=== PATIENT | male | born 1940 ===

== ENCOUNTER 2016-10-16 11:31 | Inpatient (IN) | payer MEDICARE, OTHER ==
[2016-10-12 08:32] VITALS: BMI 22.1
[2016-10-16 11:57] LABS: ADD MANUAL DIFF? NO
[2016-10-16 12:07] LABS: BASO # 0.05 K/mm3 (0.0-2.0); BASO % 0.6 % (0.0-3.0); EOS # 0.1 (0.0-0.7); EOS % 1.3 % (1.5-5.0); GRAN # 4.48 (1.4-6.5); GRAN % 56.5 % (50.0-68.0); HEMATOCRIT 37.4 % (42.0-52.0); LYMPH # 2.4 (1.2-3.4); LYMPH % 29.7 % (22.0-35.0); MEAN CELL VOLUME 96.9 fl (80.0-105.0); MEAN CORPUSCULAR HEMOGLOBIN 31.1 pg (25.0-35.0); MEAN CORPUSCULAR HGB CONC 32.1 g/dl (31.0-37.0); MEAN PLATELET VOLUME 9.6 fl (7.0-11.0); MONO # 0.9 (0.1-0.6); MONO % 11.9 % (1.0-6.0); PLATELET COUNT 321 10^3/uL (120.0-450.0); RED CELL DISTRIBUTION WIDTH 13.7 % (11.5-14.5); WHITE BLOOD COUNT 7.9 10^3/ul (4.5-11.0)
[2016-10-16 12:17] LABS: BLOOD UREA NITROGEN 21 mg/dL (7-21); CALCIUM 9.8 mg/dL (8.4-10.5); CARBON DIOXIDE 27 mmol/L (21-33); CHLORIDE 103 mmol/L (98-107); GFR AFRICAN-AMERICAN > 60; GLUCOSE,RANDOM 95 mg/dL (70-110); SODIUM 141 mmol/L (132-148)
[2016-10-16 12:18] LABS: INR 1.06 (0.93-1.08); PARTIAL THROMBOPLASTIN TIME 26.1 Seconds (23.7-30.8)
--- NOTE | 2016-10-16 12:37 | CP.SDSHP ---
Same Day Surgery H & P - History Proposed Procedure: caroted angiogram wt stent placement. Pre-Op Diagnosis: severe caroted artery disease bilteral. - Previous Medical/Surgical History Cardiac: Hypertension, ASHD/CAD, Hx of CHF, Arrhythmia, Other (cardiomyopathy.) Pulmonary: Smoking Pain: 0. No Pain Previous Surgical History: ptca ,stent x2 - Allergies Allergies: Allergies No Known Allergies Allergy (Verified 06/12/16 10:05) - Physical Exam General Appearance: WNL. Mental Status: Alert & Oriented x3 Neuro: WNL Heart: WNL Lungs: WNL GI: WNL - {Optional Preform as Required} Other Pertinent Findings: gerd.sciatica left.recurrent syncopy. - Impression Impression: severe caroted artery disease bilateral.hx of syncope. - Date & Time Date: 10/16/16 Time: 12:36 Short Stay Discharge - Short Stay Discharge Admitting Diagnosis/Reason for Visit: I65.23/G45.1 Disposition: HOME/ ROUTINE
[2016-10-16] MEDS ORDERED: Lidocaine 2% Inj (20ml) ONE (14:29)
[2016-10-16] MEDS ORDERED: Phenylephrine 10 mg/ml Inj ONE (14:29)
[2016-10-16] MEDS ORDERED: Iodixanol 320 MG/ML 100 ML BOTTLE IV ONE ×2 (14:30→15:52)
[2016-10-16] MEDS ORDERED: Midazolam 2 MG/2 ML VIAL ONE ×2 (14:30→15:03)
[2016-10-16] MEDS ORDERED: Iodixanol 320 MG/ML 200 ML BOTTLE IV ONE (14:30)
[2016-10-16] MEDS ORDERED: DOPamine 400mg/250ml D5W 400 MG/250 ML BAG IV ONE (14:30)
[2016-10-16] MEDS ORDERED: BISACODYL 5 MG PO PRN (16:51)
[2016-10-16] MEDS ORDERED: Sodium Chloride 0.45% 1,000 ML IV SCH (17:00)
[2016-10-16] MEDS ORDERED: Bisacodyl 5mg EC Tab PO PRN (17:05)
[2016-10-16] MEDS ORDERED: NOREPINEPHRINE BIT/0.9 % NACL 4 MG/250 ML BAG IV ONE (17:19)
[2016-10-16] MEDS ORDERED: Morphine 2 mg/ml ISec IVP STA (17:24)
--- NOTE | 2016-10-16 18:11 | PCM.PROC ---
Procedures Attestation:: I certify that I have explained the specified Operation(s) or Procedure(s), risks, benefits and reasonable alternatives to the Patient and/or other person responsible. The opportunity was given to ask questions and all questions answered - Central Line Placement Right Internal Jugular Triple Lumen Catheter Aseptic technique was employed throughout the procedure: Hand Hygiene done prior to procedure, Full sterile barriers (mask, hair cover, sterile gown, sterile gloves), Chloraprep Antiseptic: 30 second prep for IJ or SC sites CVP Time Out Performed: Yes Pt. Placed on Pulse Ox Monitor: Yes Central Line Prep: Chlorhexidine-Alcohol Combination Local Anesthesia Used: Lidocaine 1% Ultrasound Used for Placement: Yes Central Line Lumen Inserted: triple Central Line Length: 20 cm Post Procedure: Sutured in Place, Good Blood Return, All Ports Aspirated, Flushed, Capped, Sterile Dressing Applied Secured by: Suture Post procedure dressing: Clear vapor permeable Post Procedure X-Ray: Yes Patient Tolerated Procedure: Well Immediate Complications: None
[2016-10-16] MEDS: NOREPINEPHRINE BIT/0.9 % NACL 4 MG/250 ML BAG IV PRN ×2 (18:27→22:18)
--- NOTE | 2016-10-16 18:35 | CP.PCM.HP ---
<AimeeShereen - Last Filed: 10/16/16 18:44> History of Present Illness - History of Present Illness History of Present Illness: History and Physical for Dr. Santa 76 M presents to ICU for observation s/p carotid enderartectomy via Dr. Cote. POD#0 Patient has a history of CAD, hypertension, hypercholesterolemia. Patient came into the ICU after episode of hypotension during the procedure. In the ICU, patient had A-line placed and a Right IJ (TLC) placed at 16. Patient not tolerating pain well. Patient was given morphine during the procedures. Patient tolerated the procedure well. Norepinephrine 4 mg / 250 cc , 4mcg/min. Blood pressure reading via A-line is above 150 systolic. Please see vitals in MAR for record of BP. (will add in addendum when posted by nursing) PMH: CAD, hypertension, hypercholesterolemia. PSHx: stent placement in [place] (2010). SHX: no history of smoking or significant alcohol use. Allergies: NKDA Present on Admission - Present on Admission Any Indicators Present on Admission: No History of DVT/PE: No History of Uncontrolled Diabetes: No Urinary Catheter: No Decubitus Ulcer Present: No Past Patient History - Past Social History Smoking Status: Never Smoked - CARDIAC Hx Pacemaker: Yes - NEUROLOGICAL Hx Paralysis: No - HEMATOLOGICAL/ONCOLOGICAL Hx Blood Transfusions: No - MUSCULOSKELETAL/RHEUMATOLOGICAL Hx Musculoskeletal Disorders: Yes (SCIATICA) - PSYCHIATRIC Hx Emotional Abuse: No Hx Physical Abuse: No Hx Substance Use: No - SURGICAL HISTORY Hx Surgeries: Yes - ANESTHESIA Hx Anesthesia Reactions: No Hx Malignant Hyperthermia: No Meds Allergies/Adverse Reactions: Allergies Allergy/AdvReac Type Severity Reaction Status Date / Time No Known Allergies Allergy Verified 10/16/16 20:29 Physical Exam - Constitutional Appears: Non-toxic, No Acute Distress - Head Exam Head Exam: NORMAL INSPECTION - Eye Exam Eye Exam: EOMI, Normal appearance - ENT Exam ENT Exam: Mucous Membranes Dry Additional comments: Patient asked for water during the procedures. - Neck Exam Neck exam: Positive for: Full Rom, Normal Inspection - Respiratory Exam Respiratory Exam: Clear to Auscultation Bilateral, NORMAL BREATHING PATTERN. absent: Accessory Muscle Use, Respiratory Distress - Cardiovascular Exam Cardiovascular Exam: Tachycardia - GI/Abdominal Exam GI & Abdominal Exam: Soft. absent: Tenderness - Extremities Exam Extremities exam: Positive for: full ROM, normal inspection. Negative for: joint swelling, pedal edema, tenderness - Neurological Exam Neurological exam: Alert, Normal Gait, Oriented x3 - Psychiatric Exam Psychiatric exam: Anxious, Normal Affect, Normal Mood - Skin Skin Exam: Dry, Intact, Normal Color, Warm Results - Vital Signs Recent Vital Signs: Last Vital Signs Temp 98.2 F 10/16/16 12:10 Pulse 88 10/16/16 16:59 Resp 18 10/16/16 12:10 BP 58/34 L 10/16/16 16:59 Pulse Ox 98 10/16/16 12:10 - Labs Result Diagrams: 10/16/16 11:55 10/16/16 11:55 Labs: Laboratory Results - last 24 hr 10/16/16 10/16/16 10/16/16 11:55 11:55 11:55 WBC 7.9 RBC 3.86 Hgb 12.0 L Hct 37.4 L MCV 96.9 MCH 31.1 MCHC 32.1 RDW 13.7 Plt Count 321 MPV 9.6 Gran % 56.5 Lymph % (Auto) 29.7 [place] % (Auto) 11.9 H Eos % (Auto) 1.3 L Baso % (Auto) 0.6 Gran # 4.48 Lymph # 2.4 [place] # 0.9 H Eos # 0.1 Baso # 0.05 PT 11.4 INR 1.06 APTT 26.1 Sodium 141 Potassium 5.0 Chloride 103 Carbon Dioxide 27 Anion Gap 16 BUN 21 Creatinine 1.2 Est GFR ( Amer) > 60 Est GFR (Non-Af Amer) 59 Random Glucose 95 Calcium 9.8 Assessment & Plan - Assessment and Plan (Free Text) Assessment: 76 M s/p carotid endarterectomy POD#0 history of CAD, hypertension, hypercholesterolemia Plan: Carotid endarterectomy POD#0 monitor femoral entrance site for hematoma, drainage, bleeding Monitor CBC Lines: a line TLC - Right IJ and 16 monitor for erythema, induration, hematoma Pain: Percocet 5/325 1 tab POQ6H PRN tylenol 650 mg POQ4H PRN Hypotensive: NS 40 cc/hr Norepi 4 mg / 250 cc , 4mcg/min Altace 5mg POQD Stent placement 2010, CAD Eliquis 2.5 mg POBID ASA 81 mg POQD Lipitor 20 mg PO DIN Dulcolax Docusate GI PPX Pepcid 20 mg POQD - Date & Time Date: 10/16/16 Time: 18:45 <Wilfredo Santa Floyd - Last Filed: 10/17/16 17:54> Results - Vital Signs Recent Vital Signs: Last Vital Signs Temp 98.1 F 10/16/16 22:35 Pulse 77 10/17/16 14:20 Resp 33 H 10/17/16 14:20 BP 104/46 L 10/17/16 14:00 Pulse Ox 98 10/17/16 14:20 - Labs Result Diagrams: 10/17/16 06:30 10/17/16 09:30 Labs: Laboratory Results - last 24 hr 10/16/16 10/16/16 10/16/16 20:40 20:40 23:50 WBC 10.9 D 10.2 RBC 3.38 L 3.59 Hgb 10.5 L 11.2 L Hct 32.4 L 35.0 L MCV 95.9 97.5 MCH 31.1 31.2 MCHC 32.4 32.0 RDW 13.5 13.6 Plt Count 327 296 MPV 9.7 9.6 Gran % 69.3 H Lymph % (Auto) 20.8 L [place] % (Auto) 8.9 H Eos % (Auto) 0.5 L Baso % (Auto) 0.5 Gran # 7.52 H Lymph # 2.3 [place] # 1.0 H Eos # 0.1 Baso # 0.05 Sodium 139 Potassium 4.9 Chloride 107 Carbon Dioxide 23 Anion Gap 14 BUN 20 Creatinine 1.2 Est GFR ( Amer) > 60 Est GFR (Non-Af Amer) 59 Random Glucose 127 H Calcium 8.6 Total Bilirubin 0.4 AST 27 ALT 31 Alkaline Phosphatase 66 Total Protein 6.0 Albumin 3.4 Globulin 2.6 Albumin/Globulin Ratio 1.3 10/17/16 10/17/16 06:30 09:30 WBC 8.5 RBC 3.46 L Hgb 10.6 L Hct 33.3 L MCV 96.2 MCH 30.6 MCHC 31.8 RDW 13.6 Plt Count 325 MPV 10.4 Gran % 59.2 Lymph % (Auto) 24.8 [place] % (Auto) 13.5 H Eos % (Auto) 2.0 Baso % (Auto) 0.5 Gran # 5.06 Lymph # 2.1 [place] # 1.2 H Eos # 0.2 Baso # 0.04 Sodium 136 Potassium 4.4 Chloride 108 Carbon Dioxide 21 Anion Gap 11 BUN 18 Creatinine 1.0 Est GFR ( Amer) > 60 Est GFR (Non-Af Amer) > 60 Random Glucose 113 H Calcium 8.4 Total Bilirubin 0.5 AST 22 ALT 28 Alkaline Phosphatase 62 Total Protein 5.8 Albumin 3.2 Globulin 2.6 Albumin/Globulin Ratio 1.3 Attending/Attestation - Attestation I have personally seen and examined this patient.: Yes I have fully participated in the care of the patient.: Yes I have reviewed all pertinent clinical information: Yes Notes (Text): I have seen patient at bedside however I could not examine the patient as ICU staff was trying to put central line and A line. Briefly this is 76 year old male with history of CAD s/p stents, HTN, dyslipidemia, carotid stenosis who underwent left carotid stent placement today in IR brought to ICU for management of severe hypotension. He was started on Levophed. Dr Partida started eliquis and aspirin. Upon discharge patient will follow up with PMD. Dr Wilfredo Santa
--- NOTE | 2016-10-16 18:55 | CP.CCUPN ---
CCU Subjective - Physician Review Events Since Last Encounter (Free Text): 10/16/16 18:48 Presented to the ICU hypotensive and confused. 60/40 after carotid EA Emergently w/ Dr. casiano at bedside I placed an Arterial a-line and R IJ CVC Started on levophed after CVC confirmation. CCU Objective - Vital Signs / Intake & Output Vital Signs (Last 4 hours): Vital Signs Pulse BP 10/16/16 16:59 88 58/34 L 10/16/16 16:08 75 95/67 L - Physical Exam Head: Positive for: Atraumatic, Normocephalic Pupils: Positive for: PERRL Extroacular Muscles: Positive for: EOMI Conjunctiva: Positive for: Normal Mouth: Positive for: Moist Mucous Membranes Neck: Positive for: Normal Range of Motion Respiratory/Chest: Positive for: Clear to Auscultation, Good Air Exchange Cardiovascular: Positive for: Regular Rate and Rhythm Abdomen: Positive for: Normal Bowel Sounds Upper Extremity: Positive for: Normal Inspection Lower Extremity: Positive for: Normal Inspection Neurological: Positive for: GCS=15, CN II-XII Intact, Speech Normal - Medications Active Medications: Active Medications Generic Name Dose Route Start Last Admin Trade Name Freq PRN Reason Stop Dose Admin Acetaminophen 650 mg 10/16/16 16:50 Tylenol 325mg Tab PO Q4H PRN Pain, Mild (1-3) Apixaban 2.5 mg 10/16/16 18:00 Eliquis PO BID [place] Protocol Aspirin 81 mg 10/17/16 10:00 Ecotrin PO DAILY [place] Atorvastatin Calcium 20 mg 10/17/16 17:00 Lipitor PO DIN [place] Bisacodyl 5 mg 10/16/16 17:05 Dulcolax PO DAILY PRN Constipation Docusate Sodium 240 mg 10/16/16 22:00 Colace Liquid PO HS [place] Famotidine 20 mg 10/16/16 16:53 Pepcid PO DAILY PRN GI distress Sodium Chloride 1,000 mls @ 40 mls/hr 10/16/16 17:00 Sodium Chloride 0.45% IV .Q24H [place] NOREPINEPHRINE BIT/0.9 % NACL 4 mg in 250 mls @ 15 mls/hr 10/16/16 17:17 18:27 Levophed 4 Mg/ 250 Ml Ns Premixed IV 10 mcg/min .[id number] PRN 37.5 mls/hr TITRATE PER MD ORDER Administration Protocol 4 MCG/MIN Metoprolol Succinate 100 mg 10/17/16 10:00 Toprol Xl PO DAILY [facility] Oxycodone/Acetaminophen 1 tab 10/16/16 16:54 Percocet 5/325 Mg Tab PO 10/19/16 16:55 Q6H PRN Pain, moderate (4-7) Ramipril 5 mg 10/17/16 10:00 Altace PO DAILY [facility] - Patient Studies Lab Studies: Lab Studies 10/16/16 10/16/16 10/16/16 Range/Units 11:55 11:55 11:55 WBC 7.9 (4.5-11.0) 10^3/ul RBC 3.86 (3.5-6.1) 10^6/uL Hgb 12.0 L (14.0-18.0) g/dL Hct 37.4 L (42.0-52.0) % MCV 96.9 (80.0-105.0) fl MCH 31.1 (25.0-35.0) pg MCHC 32.1 (31.0-37.0) g/dl RDW 13.7 (11.5-14.5) % Plt Count 321 (120.0-450.0) 10^3/uL MPV 9.6 (7.0-11.0) fl Gran % 56.5 (50.0-68.0) % Lymph % (Auto) 29.7 (22.0-35.0) % [place] % (Auto) 11.9 H (1.0-6.0) % Eos % (Auto) 1.3 L (1.5-5.0) % Baso % (Auto) 0.6 (0.0-3.0) % Gran # 4.48 (1.4-6.5) Lymph # 2.4 (1.2-3.4) [place] # 0.9 H (0.1-0.6) Eos # 0.1 (0.0-0.7) Baso # 0.05 (0.0-2.0) K/mm3 PT 11.4 (9.9-11.8) Seconds INR 1.06 (0.93-1.08) APTT 26.1 (23.7-30.8) Seconds Sodium 141 (132-148) mmol/L Potassium 5.0 (3.6-5.0) mmol/L Chloride 103 (98-107) mmol/L Carbon Dioxide 27 (21-33) mmol/L Anion Gap 16 (10-20) BUN 21 (7-21) mg/dL Creatinine 1.2 (0.5-1.4) mg/dL Est GFR ( Amer) > 60 Est GFR (Non-Af Amer) 59 Random Glucose 95 (70-110) mg/dL Calcium 9.8 (8.4-10.5) mg/dL Laboratory Results - last 24 hr 10/16/16 10/16/16 10/16/16 11:55 11:55 11:55 WBC 7.9 RBC 3.86 Hgb 12.0 L Hct 37.4 L MCV 96.9 MCH 31.1 MCHC 32.1 RDW 13.7 Plt Count 321 MPV 9.6 Gran % 56.5 Lymph % (Auto) 29.7 [place] % (Auto) 11.9 H Eos % (Auto) 1.3 L Baso % (Auto) 0.6 Gran # 4.48 Lymph # 2.4 [place] # 0.9 H Eos # 0.1 Baso # 0.05 PT 11.4 INR 1.06 APTT 26.1 Sodium 141 Potassium 5.0 Chloride 103 Carbon Dioxide 27 Anion Gap 16 BUN 21 Creatinine 1.2 Est GFR ( Amer) > 60 Est GFR (Non-Af Amer) 59 Random Glucose 95 Calcium 9.8 Review of Systems - Review of Systems Systems not reviewed;Unavailable: Altered Mental Status - EENT Eyes: UNREMARKABLE Ears: UNREMARKABLE Nose/Mouth/Throat: UNREMARKABLE - Cardiovascular Cardiovascular: UNREMARKABLE - Respiratory Respiratory: UNREMARKABLE - Gastrointestinal Gastrointestinal: UNREMARKABLE - Genitourinary Genitourinary: UNREMARKABLE - Musculoskeletal Musculoskeletal: UNREMARKABLE - Integumentary Integumentary: UNREMARKABLE - Neurological Neurological: UNREMARKABLE Assessment/Plan - Assessment and Plan (Free Text) Assessment: 76 y/o M s/p Carotid L stent placement Severe hypotension noted post op unclear cause. Dr. Casiano aware of condition. Placed on Levophed to keep MAP>65 Neuro monitoring q1 hrs . Groin check L Ax A-Line placed and R IJ TLC . Keep BP 120-160. Placed on Asprin and Elequis per Dr. Partida. dvt p CC time 65 min + procedures A-line and R IJ TLC.
[2016-10-16] MEDS ORDERED: Morphine 2 mg/ml ISec IVP PRN (19:32)
[2016-10-16 20:45] LABS: ADD MANUAL DIFF? NO
[2016-10-16 20:47] LABS: BASO # 0.05 K/mm3 (0.0-2.0); BASO % 0.5 % (0.0-3.0); EOS # 0.1 (0.0-0.7); EOS % 0.5 % (1.5-5.0); GRAN # 7.52 (1.4-6.5); GRAN % 69.3 % (50.0-68.0); HEMATOCRIT 32.4 % (42.0-52.0); LYMPH # 2.3 (1.2-3.4); LYMPH % 20.8 % (22.0-35.0); MEAN CELL VOLUME 95.9 fl (80.0-105.0); MEAN CORPUSCULAR HEMOGLOBIN 31.1 pg (25.0-35.0); MEAN CORPUSCULAR HGB CONC 32.4 g/dl (31.0-37.0); MEAN PLATELET VOLUME 9.7 fl (7.0-11.0); MONO % 8.9 % (1.0-6.0); PLATELET COUNT 327 10^3/uL (120.0-450.0); RED CELL DISTRIBUTION WIDTH 13.5 % (11.5-14.5); WHITE BLOOD COUNT 10.9 10^3/ul (4.5-11.0)
[2016-10-16] MEDS ORDERED: Morphine 2 mg/ml ISec IVP SCH (21:00)
[2016-10-16 21:02] LABS: ALB/GLOB RATIO 1.3 (1.1-1.8); ALKALINE PHOSPHATASE 66 U/L (38-133); ALT/SGPT 31 U/L (7-56); AST/SGOT 27 U/L (15-59); BILIRUBIN,TOTAL 0.4 mg/dL (0.2-1.3); BLOOD UREA NITROGEN 20 mg/dL (7-21); CALCIUM 8.6 mg/dL (8.4-10.5); CARBON DIOXIDE 23 mmol/L (21-33); CHLORIDE 107 mmol/L (98-107); GFR AFRICAN-AMERICAN > 60; GLUCOSE,RANDOM 127 mg/dL (70-110); POTASSIUM 4.9 mmol/L (3.6-5.0); SODIUM 139 mmol/L (132-148)
--- NOTE | 2016-10-16 21:05 | VASCULAR ---
PROCEDURE: 1. Arch arteriogram and right carotid arteriogram. 2. Left ICA angioplasty and stent placement with filter wire protection. HISTORY: Severe proximal left ICA stenosis. TIA. Poor surgical candidate. PHYSICIAN(S): MD Sohail Butler MD. TECHNIQUE: The relative risks and indications of the procedure were explained to the patient and his family and consent obtained. The patient was on Plavix prior to procedure. The patient was placed supine on the arteriogram table and the right groin prepped and draped in usual sterile fashion. Conscious sedation monitoring were provided throughout the procedure by a nurse. Via a right common femoral artery approach, a 5 [place] sheath was placed. Through the sheath and over a guidewire 5 [place] flush catheter was placed in the ascending aorta and an AMERICAN DSA arch arteriogram performed. The catheter was exchanged for a 5 [place] Bernardo A1 catheter placed in the mid right common carotid artery. A DSA right carotid arteriogram consisting of 2 views of the bifurcation and two intracranial views were performed. Next the catheter was placed in the mid left common carotid artery and a DSA left carotid arteriogram consisted of 2 views the bifurcation and two intracranial views performed. An angled Glidewire and Bernardo A1 catheter were advanced into the left external carotid artery. A 6 [place] 90 cm Raabe sheath was placed in the mid to distal left common carotid artery. Heparin 6000 units IV and nitroglycerin into 250 mcg aliquots were given. The stenosis in the proximal left ICA was crossed with a large Peralta filter wire. The filter was successfully deployed in a straight segment of the right ICA at the level of C1. Good apposition was noted. The ICA stenosis was predilated with a 4 mm x 4 cm angioplasty balloon. Next a tapered 10-8 x 4 cm EV 3 nitinol stent was deployed from the terminal left common carotid artery in to the proximal internal carotid artery. After deployment the stenosis was dilated with a 6 mm x 3 cm balloon. Completion arteriograms were obtained. The filter wire was retrieved. The sheath was removed and hemostasis obtained with a Perclose device. The patient tolerated the procedure well without an obvious neurologic deficit. FINDINGS: There is a short stent graft in the proximal descending thoracic aorta just beyond the subclavian artery. Three great vessels are patent with calcification. An AICD is present. There is a mild stenosis of the proximal right internal carotid artery. A 8 mm ulceration is noted in the proximal right internal carotid artery. The right external carotid artery is widely patent. The right internal carotid artery is patent. The right M1 and A1 segments are patent. There is cross-filling of the left YASMINE and MCA circulation on the right carotid injection. There is a critical 90 percent smooth stenosis of the left internal carotid artery origin. The left external carotid artery is widely patent. The remainder the left internal carotid artery is patent and normal. Underfilling of the left YASMINE is noted. The left MCA is patent. There is a large left P com artery. IMPRESSION: 1. 90 percent smooth stenosis of the left internal carotid artery origin 2. Successful angioplasty and stent placement in the proximal left internal carotid artery with filter wire protection as described above 3. Mild right ICA stenosis. There is and 8 mm ulceration of the proximal right internal carotid artery.
[2016-10-16] MEDS ORDERED: Enoxaparin 80 mg Syringe SC STA (21:06)
[2016-10-16] MEDS ORDERED: Enoxaparin 80 mg Syringe SC SCH (21:15)
[2016-10-16] MEDS: Oxycodone/Acetaminophen 5/325 mg Tab PO PRN (22:00)
[2016-10-16] MEDS ORDERED: DOCUSATE CALCIUM 240 MG PO SCH (22:00)
[2016-10-17 00:09] LABS: MEAN CELL VOLUME 97.5 fl (80.0-105.0); MEAN CORPUSCULAR HEMOGLOBIN 31.2 pg (25.0-35.0); MEAN PLATELET VOLUME 9.6 fl (7.0-11.0); RED CELL DISTRIBUTION WIDTH 13.6 % (11.5-14.5); WHITE BLOOD COUNT 10.2 10^3/ul (4.5-11.0)
--- NOTE | 2016-10-17 00:59 | CT ---
EXAM: CT Abdomen and Pelvis Without Intravenous Contrast CLINICAL HISTORY: 76 years old, male; Pain; Abdominal pain; Acute; Chest pain; Type not specified; Additional info: Abd distension TECHNIQUE: Axial computed tomography images of the abdomen and pelvis without intravenous contrast. All CT scans at this facility use one or more dose reduction techniques, viz.: automated exposure control; ma/kV adjustment per patient size (including targeted exams where dose is matched to indication; i.e. head); or iterative reconstruction technique. Coronal and sagittal reformatted images were created and reviewed. COMPARISON: No relevant prior studies available. FINDINGS: ABDOMEN: Liver: No acute findings Gallbladder and bile ducts: The gallbladder is surgically absent. No intra-extrahepatic biliary ductal dilation. Pancreas: Limited evaluation secondary to the lack of intravenous contrast. Spleen: No acute findings. Adrenals: No acute findings. Kidneys and ureters: No obstructing stones. No hydronephrosis. Multiple rounded subcentimeter areas of decreased attenuation are identified bilaterally, statistically representing cysts. PELVIS: Bladder: Decompressed with a Meng catheter, limiting its evaluation. Reproductive: No acute findings. Appendix: The appendix is of normal-caliber (series 2, image 201). ABDOMEN and PELVIS: Stomach and bowel: No acute findings. Colonic diverticulosis, without inflammation. Peritoneum: As above. Lymph nodes: Limited evaluation without intravenous contrast. Vasculature: No aortic aneurysm. Calcified atherosclerotic disease. Bones: No acute fracture. IMPRESSION: No acute intra-abdominal pathology. Multiple nonacute findings, as detailed above. EXAM: CT Chest Without Intravenous Contrast CLINICAL HISTORY: 76 years old, male; Pain; Abdominal pain; Acute; Chest pain; Type not specified; Additional info: Abd distension TECHNIQUE: Axial computed tomography images of the chest without intravenous contrast. All CT scans at this facility use one or more dose reduction techniques, viz.: automated exposure control; ma/kV adjustment per patient size (including targeted exams where dose is matched to indication; i.e. head); or iterative reconstruction technique. Coronal and sagittal reformatted images were created and reviewed. COMPARISON: DX - CHEST PORTABLE 10/16/2016 6:22:17 PM FINDINGS: Lungs: No mass. No consolidation. Bibasilar atelectasis. Pleural spaces: No significant effusion. No pneumothorax. Heart: The heart is enlarged, without significant pericardial effusion. Vasculature: A stent graft is detected within the distal margin of the aortic arch, and the proximal descending thoracic aorta. Aneurysmal outpouching is detected at the level of the distal aortic arch (series 2, image 52) measuring 2.4 x 2.2 cm. This focus demonstrates incomplete calcification. Lymph nodes: No pathologically enlarged lymph nodes. Bones: No acute fracture. IMPRESSION: Findings along the left lateral margin of the aortic stent graft consistent with a focal aneurysm, with measurements as detailed above. Comparison with prior imaging is recommended, if available.
[2016-10-17] MEDS ORDERED: Enoxaparin 80 mg Syringe SC ONE (01:05)
[2016-10-17 07:03] LABS: ADD MANUAL DIFF? NO
[2016-10-17 07:16] LABS: BASO # 0.04 K/mm3 (0.0-2.0); BASO % 0.5 % (0.0-3.0); EOS # 0.2 (0.0-0.7); GRAN # 5.06 (1.4-6.5); GRAN % 59.2 % (50.0-68.0); HEMATOCRIT 33.3 % (42.0-52.0); LYMPH # 2.1 (1.2-3.4); LYMPH % 24.8 % (22.0-35.0); MEAN CELL VOLUME 96.2 fl (80.0-105.0); MEAN CORPUSCULAR HEMOGLOBIN 30.6 pg (25.0-35.0); MEAN CORPUSCULAR HGB CONC 31.8 g/dl (31.0-37.0); MEAN PLATELET VOLUME 10.4 fl (7.0-11.0); MONO # 1.2 (0.1-0.6); MONO % 13.5 % (1.0-6.0); PLATELET COUNT 325 10^3/uL (120.0-450.0); RED CELL DISTRIBUTION WIDTH 13.6 % (11.5-14.5); WHITE BLOOD COUNT 8.5 10^3/ul (4.5-11.0)
[2016-10-17] MEDS: Oxycodone/Acetaminophen 5/325 mg Tab PO PRN ×2 (07:44→15:28)
--- NOTE | 2016-10-17 09:00 | RAD ---
HISTORY: central line COMPARISON: No prior. FINDINGS: LUNGS: Right hemidiaphragmatic elevation of unknown chronicity is noted. No consolidations seen. PLEURA: No significant pleural effusion identified, no pneumothorax apparent. CARDIOVASCULAR: Heart is mildly enlarged a aortic knob stent graft is in place. There is soft tissue density lateral to it of unknown chronicity. Please note the subsequent CT chest abdomen and pelvic exam/report. Comparison with prior outside studies is needed to assess for interval change here Central pulmonary vascular congestion is suspect left slightly greater than right. A dual lead AICD pacemaker device is in place OSSEOUS STRUCTURES: No significant abnormalities. VISUALIZED UPPER ABDOMEN: Normal. OTHER FINDINGS: A right internal jugular central line is inserted its tip is probably at the superior vena cava -right atrial junction also is in close proximity with the pacemakers dual leads no pneumothorax seen IMPRESSION: Right internal jugular vein approach central line tip at right caval atrial junction. No pneumothorax. Asymmetrical elevated right hemidiaphragm -unknown chronicity Cardiomegaly with left aortic arch/knob stent -left lateral to the stent there is soft tissue density of unknown chronicity and significance. Please note the same-day CT chest abdomen and pelvic subsequent exam/report. Direct comparison with earlier chest x-rays or CTs chest studies is not available to assess for interval change Mild central pulmonary venous congestion suspect left greater than right. No consolidation or significant appearing pleural effusion
[2016-10-17] MEDS: NOREPINEPHRINE BIT/0.9 % NACL 4 MG/250 ML BAG IV PRN (09:41)
--- NOTE | 2016-10-17 09:49 | CARD ---
APPROVED REPORT EKG Measurement Heart [id number] <Conclusion> AV sequential or dual chamber electronic pacemaker
[2016-10-17 09:57] LABS: ALB/GLOB RATIO 1.3 (1.1-1.8); ALKALINE PHOSPHATASE 62 U/L (38-133); ALT/SGPT 28 U/L (7-56); AST/SGOT 22 U/L (15-59); BILIRUBIN,TOTAL 0.5 mg/dL (0.2-1.3); BLOOD UREA NITROGEN 18 mg/dL (7-21); CALCIUM 8.4 mg/dL (8.4-10.5); CARBON DIOXIDE 21 mmol/L (21-33); CHLORIDE 108 mmol/L (95-110); GFR AFRICAN-AMERICAN > 60; GLUCOSE,RANDOM 113 mg/dL (70-110); POTASSIUM 4.4 mmol/L (3.6-5.0); SODIUM 136 mmol/L (132-148); TOTAL PROTEIN 5.8 g/dL (5.8-8.3)
[2016-10-17] MEDS ORDERED: Non Formulary Medication (Simvastatin [Simvastatin] 40 MG) PO SCH (10:00)
[2016-10-17] MEDS ORDERED: Metoprolol Succinate 100 mg XL Tab PO SCH (10:00)
[2016-10-17] MEDS ORDERED: Sodium Chloride 0.9% 500 ML IV STA (13:01)
--- NOTE | 2016-10-17 13:12 | CP.PCM.PN ---
<Allyn Garcia - Last Filed: 10/17/16 13:31> Subjective - Date & Time of Evaluation Date of Evaluation: 10/19/15 Time of Evaluation: 07:20 - Subjective Subjective: Allyn Garcia DO, PGY-1, Internal Medicine, Hospitalist Service Patient seen and examined at bedside. Per nursing no acute events overnight. Patient was having abdominal distenstion, CT abd/pelvis showed no acute findings. Patient currently having pain. Denies headaches, dizziness, cp, sob, palpitations, abdominal pain, urinary symptoms. Objective - Vital Signs/Intake and Output Vital Signs (last 24 hours): Temp Pulse Resp BP Pulse Ox 98.1 F 67 14 108/50 L 98 10/16/16 22:35 10/17/16 13:00 10/17/16 13:00 10/17/16 13:02 10/17/16 13:00 Intake and Output: 10/17/16 10/17/16 06:59 18:59 Intake Total 980 60 Output Total 950 Balance 30 60 - Medications Medications: Current Medications Acetaminophen (Tylenol 325mg Tab) 650 mg PO Q4H PRN PRN Reason: Pain, Mild (1-3) Apixaban (Eliquis) 2.5 mg PO BID [facility] PRN Reason: Protocol Aspirin (Ecotrin) 81 mg PO DAILY [facility] Last Admin: 10/17/16 09:40 Dose: 81 mg Atorvastatin Calcium (Lipitor) 20 mg PO DIN [facility] Bisacodyl (Dulcolax) 5 mg PO DAILY PRN PRN Reason: Constipation Docusate Sodium (Colace Liquid) 240 mg PO [facility] Last Admin: 10/16/16 22:02 Dose: 240 mg Famotidine (Pepcid) 20 mg PO DAILY PRN PRN Reason: GI distress NOREPINEPHRINE BIT/0.9 % NACL (Levophed 4 Mg/ 250 Ml Ns Premixed) 4 mg in 250 mls @ 15 mls/hr IV .[id number] PRN; Protocol; 4 MCG/MIN PRN Reason: TITRATE PER MD ORDER Last Titration: 10/17/16 12:45 Dose: 5 mcg/min, 18.75 mls/hr Sodium Chloride (Sodium Chloride 0.9%) 500 mls @ 999 mls/hr IV .Q31M STA Stop: 10/17/16 13:31 Oxycodone/Acetaminophen (Percocet 5/325 Mg Tab) 1 tab PO Q6H PRN PRN Reason: Pain, moderate (4-7) Stop: 10/19/16 16:55 Last Admin: 10/17/16 07:44 Dose: 1 tab - Labs Labs: 10/17/16 06:30 10/17/16 09:30 PT 11.4 Seconds (9.9-11.8) 10/16/16 11:55 INR 1.06 (0.93-1.08) 10/16/16 11:55 APTT 26.1 Seconds (23.7-30.8) 10/16/16 11:55 - Constitutional Appears: Well, No Acute Distress - Head Exam Head Exam: ATRAUMATIC, NORMAL INSPECTION - Eye Exam Eye Exam: EOMI, Normal appearance Pupil Exam: NORMAL ACCOMODATION - ENT Exam ENT Exam: Mucous Membranes Moist - Neck Exam Neck Exam: Full ROM Additional comments: R IJ central line - Respiratory Exam Respiratory Exam: Clear to Ausculation Bilateral, NORMAL BREATHING PATTERN. absent: Rales, Rhonchi, Wheezes - Cardiovascular Exam Cardiovascular Exam: REGULAR RHYTHM, +S1, +S2 - GI/Abdominal Exam GI & Abdominal Exam: Soft. absent: Distended, Guarding, Rigid, Tenderness - Extremities Exam Additional comments: Groin dressing with bloody drainage +pedal pulses palpable Arterial A-line place - Back Exam Back Exam: NORMAL INSPECTION - Neurological Exam Neurological Exam: Alert, Awake, Oriented x3 - Psychiatric Exam Psychiatric exam: Normal Affect, Normal Mood - Skin Skin Exam: Normal Color, Warm Assessment and Plan - Assessment and Plan (Free Text) Assessment: 76 M with pmhx of CAD, hypertension, hypercholesterolemia, carotid stenosis s/p L ICA stent POD#1 presented post op with hypotension and AMS Plan: 1. Carotid Stenosis s/p L ICA stent placement POD#1 -Stable, afebrile -Monitor groin access site for bleeding -Monitor CBC -IVF hydration -Pain control prn: Percocet -Continue Dulcolax and Colace for constipation -F/U carotid artery US 2. Hypotension -Patient with Right IJ central line, Arterial A line -Started on levophed yesterday, currently at running at 6 mcg -Continue to monitor BPs -Will attempt to wean off pressor as tolerated 3. Hx of CAD, s/p stent placement in 2010 -Continue ASA, Lipitor 4. Abdominal Distention -CT abd/pelvis: no acute findings -Continue to monitor 5. GI ppx -Pepcid 20mg daily <Wilfredo Santa - Last Filed: 10/19/16 15:15> Objective - Vital Signs/Intake and Output Vital Signs (last 24 hours): Temp Pulse Resp BP Pulse Ox 98 F 97 H 16 129/85 96 10/19/16 12:00 10/19/16 12:00 10/19/16 12:00 10/19/16 12:00 10/19/16 06:00 Intake and Output: 10/19/16 10/19/16 06:59 18:59 Intake Total 250 Output Total 1000 Balance -750 - Medications Medications: Current Medications Acetaminophen (Tylenol 325mg Tab) 650 mg PO Q4H PRN PRN Reason: Pain, Mild (1-3) Last Admin: 10/19/16 09:25 Dose: 650 mg Apixaban (Eliquis) 2.5 mg PO BID [facility] PRN Reason: Protocol Aspirin (Ecotrin) 81 mg PO DAILY [facility] Last Admin: 10/19/16 10:06 Dose: 81 mg Atorvastatin Calcium (Lipitor) 20 mg PO DIN [facility] Last Admin: 10/18/16 17:13 Dose: 20 mg Bisacodyl (Dulcolax) 5 mg PO DAILY PRN PRN Reason: Constipation Last Admin: 10/18/16 18:46 Dose: 5 mg Docusate Sodium (Colace Liquid) 240 mg PO HS [facility] Last Admin: 10/18/16 22:42 Dose: 240 mg Enoxaparin Sodium (Lovenox) 70 mg SC Q12H [facility] PRN Reason: Protocol Last Admin: 10/19/16 05:56 Dose: 70 mg Famotidine (Pepcid) 20 mg PO DAILY PRN PRN Reason: GI distress Oxycodone/Acetaminophen (Percocet 5/325 Mg Tab) 1 tab PO Q6H PRN PRN Reason: Pain, moderate (4-7) Stop: 10/19/16 16:55 Last Admin: 10/18/16 08:25 Dose: 1 tab - Labs Labs: 10/19/16 04:30 10/19/16 04:30 PT 11.4 Seconds (9.9-11.8) 10/16/16 11:55 INR 1.06 (0.93-1.08) 10/16/16 11:55 APTT 26.1 Seconds (23.7-30.8) 10/16/16 11:55 Attending/Attestation - Attestation I have personally seen and examined this patient.: Yes I have fully participated in the care of the patient.: Yes I have reviewed all pertinent clinical information, including history, physical exam and plan: Yes Notes (Text): I have seen and examined the patient at bedside. Briefly this is 76 year old male with history of CAD s/p stents, HTN, dyslipidemia, carotid stenosis, CHF ( EF20%), s/p AICD who underwent left carotid stent placement yesterday in IR brought to ICU for management of severe hypotension. He remains on pressors although he is awake and alert. Patients and son is at the bedside. Eliquis on hold. Start lovenox. Upon discharge patient will follow up with Dr Fredi Cote. Dr Wilfredo Santa
--- NOTE | 2016-10-17 16:37 | CP.PCM.PN ---
<LV SALAZAR - Last Filed: 10/17/16 16:55> Subjective - Date & Time of Evaluation Date of Evaluation: 10/17/16 Time of Evaluation: 07:30 - Subjective Subjective: Patient seen and examined at bedside. Nurse reports that overnight, patient complained of abdominal pain and distension, with the urge to urinate, but inability to pass urine, subsequently placed ngo and put out 650mL. Also reports decreasing need for levophed overnight. Patient has no particular complaints, denies CP, SOB, abdominal pain, n/v/d, PEREZ, dizziness. Objective - Vital Signs/Intake and Output Vital Signs (last 24 hours): Temp Pulse Resp BP Pulse Ox 98.1 F 77 33 H 104/46 L 98 10/16/16 22:35 10/17/16 14:20 10/17/16 14:20 10/17/16 14:00 10/17/16 14:20 Intake and Output: 10/17/16 10/17/16 06:59 18:59 Intake Total 980 60 Output Total 950 Balance 30 60 - Medications Medications: Current Medications Acetaminophen (Tylenol 325mg Tab) 650 mg PO Q4H PRN PRN Reason: Pain, Mild (1-3) Apixaban (Eliquis) 2.5 mg PO BID [facility] PRN Reason: Protocol Aspirin (Ecotrin) 81 mg PO DAILY [facility] Last Admin: 10/17/16 09:40 Dose: 81 mg Atorvastatin Calcium (Lipitor) 20 mg PO DIN [facility] Bisacodyl (Dulcolax) 5 mg PO DAILY PRN PRN Reason: Constipation Docusate Sodium (Colace Liquid) 240 mg PO HS [facility] Last Admin: 10/16/16 22:02 Dose: 240 mg Enoxaparin Sodium (Lovenox) 70 mg SC Q12H [facility] PRN Reason: Protocol Famotidine (Pepcid) 20 mg PO DAILY PRN PRN Reason: GI distress NOREPINEPHRINE BIT/0.9 % NACL (Levophed 4 Mg/ 250 Ml Ns Premixed) 4 mg in 250 mls @ 15 mls/hr IV .[id number] PRN; Protocol; 4 MCG/MIN PRN Reason: TITRATE PER MD ORDER Last Titration: 10/17/16 15:42 Dose: 3 mcg/min, 11.25 mls/hr Oxycodone/Acetaminophen (Percocet 5/325 Mg Tab) 1 tab PO Q6H PRN PRN Reason: Pain, moderate (4-7) Stop: 10/19/16 16:55 Last Admin: 10/17/16 15:28 Dose: 1 tab - Labs Labs: 10/17/16 06:30 10/17/16 09:30 PT 11.4 Seconds (9.9-11.8) 10/16/16 11:55 INR 1.06 (0.93-1.08) 10/16/16 11:55 APTT 26.1 Seconds (23.7-30.8) 10/16/16 11:55 - Constitutional Appears: Non-toxic, No Acute Distress - Head Exam Head Exam: ATRAUMATIC, NORMOCEPHALIC - Eye Exam Eye Exam: EOMI, PERRL - ENT Exam ENT Exam: Mucous Membranes Moist - Neck Exam Neck Exam: absent: Lymphadenopathy, Meningismus, Thyromegaly Additional comments: Central line in place. No bleeding or drainage. - Respiratory Exam Respiratory Exam: Clear to Ausculation Bilateral. absent: Rales, Rhonchi - Cardiovascular Exam Cardiovascular Exam: RRR, +S1, +S2 - GI/Abdominal Exam GI & Abdominal Exam: Soft. absent: Firm, Guarding, Rigid, Tenderness - Extremities Exam Extremities Exam: absent: Calf Tenderness, Pedal Edema Additional comments: Axillary arterial line in place, no bleeding or drainage noted. Groin wound with some old clotted blood on dressing, no hematoma, no bruit. - Neurological Exam Neurological Exam: Alert, Awake, Oriented x3 - Psychiatric Exam Psychiatric exam: Normal Affect, Normal Mood - Skin Skin Exam: Dry, Intact Assessment and Plan - Assessment and Plan (Free Text) Assessment: 76 yo M admitted to the ICU s/p carotid stent placement, severely hypotensive of unclear etiology, for neuro monitoring and hypotension requiring vasopressor support. Plan: Neuro: - AAOx3, neurologically stable overnight - Continue to monitor neuro status CV: - Hypotensive at presentation, 60's/40's, requiring levophed. Down to 6 on levophed this AM, will continue to titrate down and monitor organ function, including urine output. Patient reportedly normally has borderline hypotension at 90's/50's - Left axillary a-line in place for frequent BP monitoring - Right IJ triple lumen central line in place - CT abd/pel completed last night, no retroperitoneal hemorrhage - Continue groin checks - Cardio (Dr. Cote) on consult, all recs appreciated - Maintain MAP>65 Pulm: - Lungs CTA b/l - Maintain O2 sat >90% Renal: - Monitor I's & O's - Maintain euvolemia - Monitor and replete lytes as needed GI: - Tolerating PO - Pepcid for Ppx Endo: - Maintain euglycemia Hem/Onc: - H/H stable, no active bleed noted - On Lovenox per Dr. Cote - Continue to monitor ID: - Afebrile, no leukocytosis - Continue to monitor Ppx: Pepcid for GI, Lovenox covers for DVT Patient seen, examined, and discussed with attending. <Kiet DANIEL,Jeancarlos H - Last Filed: 10/18/16 12:33> Objective - Vital Signs/Intake and Output Vital Signs (last 24 hours): Temp Pulse Resp BP Pulse Ox 98.1 F 87 23 95/57 L 96 10/18/16 07:27 10/18/16 11:11 10/18/16 10:40 10/18/16 11:11 10/18/16 10:40 Intake and Output: 10/18/16 10/18/16 06:59 18:59 Intake Total 140 Output Total 1100 Balance -960 - Medications Medications: Current Medications Acetaminophen (Tylenol 325mg Tab) 650 mg PO Q4H PRN PRN Reason: Pain, Mild (1-3) Apixaban (Eliquis) 2.5 mg PO BID [facility] PRN Reason: Protocol Aspirin (Ecotrin) 81 mg PO DAILY [facility] Last Admin: 10/18/16 10:41 Dose: 81 mg Atorvastatin Calcium (Lipitor) 20 mg PO DIN [facility] Last Admin: 10/17/16 17:18 Dose: 20 mg Bisacodyl (Dulcolax) 5 mg PO DAILY PRN PRN Reason: Constipation Docusate Sodium (Colace Liquid) 240 mg PO HS [facility] Last Admin: 10/17/16 22:00 Dose: 240 mg Enoxaparin Sodium (Lovenox) 70 mg SC Q12H [facility] PRN Reason: Protocol Last Admin: 10/18/16 04:55 Dose: 70 mg Famotidine (Pepcid) 20 mg PO DAILY PRN PRN Reason: GI distress NOREPINEPHRINE BIT/0.9 % NACL (Levophed 4 Mg/ 250 Ml Ns Premixed) 4 mg in 250 mls @ 15 mls/hr IV .[id number] PRN; Protocol; 4 MCG/MIN PRN Reason: TITRATE PER MD ORDER Last Titration: 10/17/16 18:31 Dose: 0 mcg/min, 0 mls/hr Oxycodone/Acetaminophen (Percocet 5/325 Mg Tab) 1 tab PO Q6H PRN PRN Reason: Pain, moderate (4-7) Stop: 10/19/16 16:55 Last Admin: 10/18/16 08:25 Dose: 1 tab - Labs Labs: 10/18/16 06:20 10/18/16 06:20 PT 11.4 Seconds (9.9-11.8) 10/16/16 11:55 INR 1.06 (0.93-1.08) 10/16/16 11:55 APTT 26.1 Seconds (23.7-30.8) 10/16/16 11:55 Attending/Attestation - Attestation I have personally seen and examined this patient.: Yes I have fully participated in the care of the patient.: Yes I have reviewed all pertinent clinical information, including history, physical exam and plan: Yes Notes (Text): 10/18/16 12:31 76 y/o M s/p Carotid stent placement Post of hypotension resolved and off vasopressors. [id number]. Cardiology and IR aware of the status. Pt is not having any further complaints. No headache or neuro disturbances. PT/OT TLC and A-Line removal. elequis or lovex and asprin to be continued. cc time 4 5min
[2016-10-17] MEDS: Enoxaparin 80 mg Syringe SC SCH (17:18)
--- NOTE | 2016-10-17 18:58 | US ---
PROCEDURE: Left carotid duplex arterial ultrasound HISTORY: Carotid stenosis TIA. Recent left ICA stent. Baseline study. PHYSICIAN(S): Sohail Partida MD. TECHNIQUE: Duplex sonography and color-flow Doppler were used to evaluate the left carotid bifurcation. FINDINGS: There is a self expanding stent well positioned at the origin of the left internal carotid artery. No evidence of thrombus or dissection is appreciated A portion of the stent is obscured by shadowing plaque. The stent is patent with normal velocities present. The peak systolic velocity in the stent is evident 88 cm/second. The proximal left external carotid artery is patent. There is antegrade flow in the left vertebral artery. IMPRESSION: 1. Widely patent proximal left ICA stent.
[2016-10-18] MEDS: Oxycodone/Acetaminophen 5/325 mg Tab PO PRN ×2 (00:28→08:25)
[2016-10-18] MEDS: Enoxaparin 80 mg Syringe SC SCH ×2 (04:55→17:13)
[2016-10-18 06:26] LABS: ADD MANUAL DIFF? NO
[2016-10-18 06:32] LABS: BASO # 0.04 K/mm3 (0.0-2.0); BASO % 0.8 % (0.0-3.0); EOS # 0.2 (0.0-0.7); EOS % 3.7 % (1.5-5.0); GRAN # 2.41 (1.4-6.5); GRAN % 47.3 % (50.0-68.0); LYMPH # 1.8 (1.2-3.4); LYMPH % 35.6 % (22.0-35.0); MEAN CELL VOLUME 95.5 fl (80.0-105.0); MEAN CORPUSCULAR HEMOGLOBIN 31.2 pg (25.0-35.0); MEAN CORPUSCULAR HGB CONC 32.7 g/dl (31.0-37.0); MEAN PLATELET VOLUME 9.5 fl (7.0-11.0); MONO # 0.6 (0.1-0.6); MONO % 12.6 % (1.0-6.0); PLATELET COUNT 223 10^3/uL (120.0-450.0); RED CELL DISTRIBUTION WIDTH 13.7 % (11.5-14.5); WHITE BLOOD COUNT 5.1 10^3/ul (4.5-11.0)
[2016-10-18 07:06] LABS: ALB/GLOB RATIO 1.2 (1.1-1.8); ALKALINE PHOSPHATASE 61 U/L (38-133); ALT/SGPT 29 U/L (7-56); AST/SGOT 30 U/L (15-59); BILIRUBIN,TOTAL 0.3 mg/dL (0.2-1.3); BLOOD UREA NITROGEN 17 mg/dL (7-21); CALCIUM 8.6 mg/dL (8.4-10.5); CARBON DIOXIDE 23 mmol/L (21-33); CHLORIDE 107 mmol/L (95-110); GFR AFRICAN-AMERICAN > 60; GLUCOSE,RANDOM 83 mg/dL (70-110); POTASSIUM 4.1 mmol/L (3.6-5.0); SODIUM 138 mmol/L (132-148); TOTAL PROTEIN 5.7 g/dL (5.8-8.3)
--- NOTE | 2016-10-18 13:26 | CP.PCM.PN ---
<Adalgisa Aguayo - Last Filed: 10/18/16 13:23> Subjective - Date & Time of Evaluation Date of Evaluation: 10/18/16 Time of Evaluation: 08:00 - Subjective Subjective: ICU Progress Note Patient seen and examined at bedside. Pt has no acute complaints at this time. Pt was weaned off pressors overnight at approx 1am and has been remaining HD stable consistent with pt's baseline. Pt has been voiding freely. No acute or adverse events overnight as per nursing staff. Pt denied fever, headache, dizziness, chills, sob, chest pains, abdominal pains, n/v/d/c or urinary symptoms. Objective - Vital Signs/Intake and Output Vital Signs (last 24 hours): Temp Pulse Resp BP Pulse Ox 98.1 F 87 23 95/57 L 96 10/18/16 07:27 10/18/16 11:11 10/18/16 10:40 10/18/16 11:11 10/18/16 10:40 Intake and Output: 10/18/16 10/18/16 06:59 18:59 Intake Total 140 Output Total 1100 Balance -960 - Medications Medications: Current Medications Acetaminophen (Tylenol 325mg Tab) 650 mg PO Q4H PRN PRN Reason: Pain, Mild (1-3) Apixaban (Eliquis) 2.5 mg PO BID [facility] PRN Reason: Protocol Aspirin (Ecotrin) 81 mg PO DAILY [facility] Last Admin: 10/18/16 10:41 Dose: 81 mg Atorvastatin Calcium (Lipitor) 20 mg PO DIN [facility] Last Admin: 10/17/16 17:18 Dose: 20 mg Bisacodyl (Dulcolax) 5 mg PO DAILY PRN PRN Reason: Constipation Docusate Sodium (Colace Liquid) 240 mg PO HS [facility] Last Admin: 10/17/16 22:00 Dose: 240 mg Enoxaparin Sodium (Lovenox) 70 mg SC Q12H [facility] PRN Reason: Protocol Last Admin: 10/18/16 04:55 Dose: 70 mg Famotidine (Pepcid) 20 mg PO DAILY PRN PRN Reason: GI distress NOREPINEPHRINE BIT/0.9 % NACL (Levophed 4 Mg/ 250 Ml Ns Premixed) 4 mg in 250 mls @ 15 mls/hr IV .[id number] PRN; Protocol; 4 MCG/MIN PRN Reason: TITRATE PER MD ORDER Last Titration: 10/17/16 18:31 Dose: 0 mcg/min, 0 mls/hr Oxycodone/Acetaminophen (Percocet 5/325 Mg Tab) 1 tab PO Q6H PRN PRN Reason: Pain, moderate (4-7) Stop: 10/19/16 16:55 Last Admin: 10/18/16 08:25 Dose: 1 tab - Labs Labs: 10/18/16 06:20 10/18/16 06:20 PT 11.4 Seconds (9.9-11.8) 10/16/16 11:55 INR 1.06 (0.93-1.08) 10/16/16 11:55 APTT 26.1 Seconds (23.7-30.8) 10/16/16 11:55 - Constitutional Appears: No Acute Distress - Head Exam Head Exam: ATRAUMATIC, NORMAL INSPECTION, NORMOCEPHALIC - Eye Exam Eye Exam: EOMI, Normal appearance, PERRL Pupil Exam: NORMAL ACCOMODATION, PERRL - ENT Exam ENT Exam: Mucous Membranes Moist, Normal Exam - Neck Exam Neck Exam: Full ROM, Normal Inspection. absent: Lymphadenopathy - Respiratory Exam Respiratory Exam: Clear to Ausculation Bilateral, NORMAL BREATHING PATTERN - Cardiovascular Exam Cardiovascular Exam: REGULAR RHYTHM, +S1, +S2. absent: Murmur - GI/Abdominal Exam GI & Abdominal Exam: Soft, Normal Bowel Sounds. absent: Tenderness - Extremities Exam Extremities Exam: Full ROM, Normal Capillary Refill, Normal Inspection. absent : Joint Swelling, Pedal Edema - Neurological Exam Neurological Exam: Alert, Awake, CN II-XII Intact, Normal Gait, Oriented x3 - Psychiatric Exam Psychiatric exam: Normal Affect, Normal Mood - Skin Skin Exam: Dry, Intact, Normal Color, Warm Assessment and Plan - Assessment and Plan (Free Text) Assessment: 76 M admitted to the ICU s/p carotid stent placement for close HD/neuro monitoring as pt experienced hypotension requiring pressor support. Pt has since stabilized and has been weaned off pressors and maintaining MAP >65. Neuro: - AAOx3, neurologically stable overnight - Continue to monitor neuro status CV: - HD stable, off pressors - no signs of active bleeding - Continue groin checks - Cardio (Dr. Cote) on consult, all recs appreciated - Maintain MAP>65 Pulm: - Lungs CTA b/l - Maintain O2 sat >90% Renal: - Monitor I's & O's - Maintain euvolemia - Monitor and replete lytes as needed GI: - Tolerating PO - Pepcid for Ppx Endo: - Maintain euglycemia Hem/Onc: - H/H stable, no active bleed noted - On Lovenox per Dr. Cote - Continue to monitor ID: - Afebrile, no leukocytosis - Continue to monitor Ppx: Pepcid for GI, Lovenox covers for DVT PT/OT/OOB/ Seen reviewed and discussed with attending <Kiet DANIEL,Jeancralos H - Last Filed: 10/18/16 17:21> Objective - Vital Signs/Intake and Output Vital Signs (last 24 hours): Temp Pulse Resp BP Pulse Ox 98.4 F 93 H 18 96/52 L 98 10/18/16 16:50 10/18/16 16:50 10/18/16 16:50 10/18/16 16:50 10/18/16 16:50 Intake and Output: 10/18/16 10/18/16 06:59 18:59 Intake Total 140 Output Total 1100 Balance -960 - Medications Medications: Current Medications Acetaminophen (Tylenol 325mg Tab) 650 mg PO Q4H PRN PRN Reason: Pain, Mild (1-3) Apixaban (Eliquis) 2.5 mg PO BID [facility] PRN Reason: Protocol Aspirin (Ecotrin) 81 mg PO DAILY [facility] Last Admin: 10/18/16 10:41 Dose: 81 mg Atorvastatin Calcium (Lipitor) 20 mg PO DIN [facility] Last Admin: 10/18/16 17:13 Dose: 20 mg Bisacodyl (Dulcolax) 5 mg PO DAILY PRN PRN Reason: Constipation Docusate Sodium (Colace Liquid) 240 mg PO HS [facility] Last Admin: 10/17/16 22:00 Dose: 240 mg Enoxaparin Sodium (Lovenox) 70 mg SC Q12H [facility] PRN Reason: Protocol Last Admin: 10/18/16 17:13 Dose: 70 mg Famotidine (Pepcid) 20 mg PO DAILY PRN PRN Reason: GI distress NOREPINEPHRINE BIT/0.9 % NACL (Levophed 4 Mg/ 250 Ml Ns Premixed) 4 mg in 250 mls @ 15 mls/hr IV .[id number] PRN; Protocol; 4 MCG/MIN PRN Reason: TITRATE PER MD ORDER Last Titration: 10/17/16 18:31 Dose: 0 mcg/min, 0 mls/hr Oxycodone/Acetaminophen (Percocet 5/325 Mg Tab) 1 tab PO Q6H PRN PRN Reason: Pain, moderate (4-7) Stop: 10/19/16 16:55 Last Admin: 10/18/16 08:25 Dose: 1 tab - Labs Labs: 10/18/16 06:20 10/18/16 06:20 PT 11.4 Seconds (9.9-11.8) 10/16/16 11:55 INR 1.06 (0.93-1.08) 10/16/16 11:55 APTT 26.1 Seconds (23.7-30.8) 10/16/16 11:55 Attending/Attestation - Attestation I have personally seen and examined this patient.: Yes I have fully participated in the care of the patient.: Yes I have reviewed all pertinent clinical information, including history, physical exam and plan: Yes Notes (Text): 10/18/16 17:20 No acute events overnight TLC and A Line removed. SBP 90's No complaints or change is neuro status Plan to send to telemetry per PCP cc time 45 min
--- NOTE | 2016-10-18 15:48 | CP.PCM.PN ---
<Allyn Garcia - Last Filed: 10/18/16 15:55> Subjective - Date & Time of Evaluation Date of Evaluation: 10/18/16 Time of Evaluation: 07:55 - Subjective Subjective: Allyn Garcia DO, PGY-1, Internal Medicine, Hospitalist Service Patient seen and examined at bedside. Per nursing no acute events overnight. Patient has been off levophed since yesterday evening, BPs stable. Patient offers no complaints at this time. Tolerating diet. Denies headache, dizziness, cp, sob, abdominal pain, numbness, tingling, urinary symptoms. Objective - Vital Signs/Intake and Output Vital Signs (last 24 hours): Temp Pulse Resp BP Pulse Ox 98.1 F 79 22 91/51 L 99 10/18/16 07:27 10/18/16 15:10 10/18/16 15:10 10/18/16 14:23 10/18/16 15:10 Intake and Output: 10/18/16 10/18/16 06:59 18:59 Intake Total 140 Output Total 1100 Balance -960 - Medications Medications: Current Medications Acetaminophen (Tylenol 325mg Tab) 650 mg PO Q4H PRN PRN Reason: Pain, Mild (1-3) Apixaban (Eliquis) 2.5 mg PO BID [facility] PRN Reason: Protocol Aspirin (Ecotrin) 81 mg PO DAILY [facility] Last Admin: 10/18/16 10:41 Dose: 81 mg Atorvastatin Calcium (Lipitor) 20 mg PO DIN [facility] Last Admin: 10/17/16 17:18 Dose: 20 mg Bisacodyl (Dulcolax) 5 mg PO DAILY PRN PRN Reason: Constipation Docusate Sodium (Colace Liquid) 240 mg PO HS [facility] Last Admin: 10/17/16 22:00 Dose: 240 mg Enoxaparin Sodium (Lovenox) 70 mg SC Q12H [facility] PRN Reason: Protocol Last Admin: 10/18/16 04:55 Dose: 70 mg Famotidine (Pepcid) 20 mg PO DAILY PRN PRN Reason: GI distress NOREPINEPHRINE BIT/0.9 % NACL (Levophed 4 Mg/ 250 Ml Ns Premixed) 4 mg in 250 mls @ 15 mls/hr IV .[id number] PRN; Protocol; 4 MCG/MIN PRN Reason: TITRATE PER MD ORDER Last Titration: 10/17/16 18:31 Dose: 0 mcg/min, 0 mls/hr Oxycodone/Acetaminophen (Percocet 5/325 Mg Tab) 1 tab PO Q6H PRN PRN Reason: Pain, moderate (4-7) Stop: 10/19/16 16:55 Last Admin: 10/18/16 08:25 Dose: 1 tab - Labs Labs: 10/18/16 06:20 10/18/16 06:20 PT 11.4 Seconds (9.9-11.8) 10/16/16 11:55 INR 1.06 (0.93-1.08) 10/16/16 11:55 APTT 26.1 Seconds (23.7-30.8) 10/16/16 11:55 - Constitutional Appears: Well, No Acute Distress - Head Exam Head Exam: NORMAL INSPECTION, NORMOCEPHALIC - Eye Exam Eye Exam: EOMI, Normal appearance Pupil Exam: NORMAL ACCOMODATION - ENT Exam ENT Exam: Mucous Membranes Moist - Neck Exam Neck Exam: Full ROM Additional comments: R IJ central line - Respiratory Exam Respiratory Exam: Clear to Ausculation Bilateral, NORMAL BREATHING PATTERN. absent: Rales, Rhonchi, Wheezes - Cardiovascular Exam Cardiovascular Exam: REGULAR RHYTHM, +S1, +S2 - GI/Abdominal Exam GI & Abdominal Exam: Soft, Normal Bowel Sounds. absent: Guarding, Tenderness, Rebound - Extremities Exam Extremities Exam: Full ROM, Normal Inspection Additional comments: Groin dressing c/d/i + pedal pulses - Back Exam Back Exam: NORMAL INSPECTION - Neurological Exam Neurological Exam: Alert, Awake, Oriented x3 - Psychiatric Exam Psychiatric exam: Normal Affect, Normal Mood - Skin Skin Exam: Normal Color, Warm Assessment and Plan - Assessment and Plan (Free Text) Assessment: 76 M with pmhx of CAD, hypertension, hypercholesterolemia, carotid stenosis s/p L ICA stent POD#2 presented post op with hypotension and AMS Plan: 1. Carotid Stenosis s/p L ICA stent placement POD#1 -Stable, afebrile -AAO x3 -Monitor groin access site for bleeding -Monitor CBC -Pain control prn: Percocet -Continue Dulcolax and Colace for constipation -Carotid artery US showing widely patent proximal L ICA stent -Will downgrade to med/surg today 2. Hypotension -Levophed titrated off since yesterday -BPs stable at baseline -Continue to monitor BPs -Goal SBP > 75 -R IJ and arterial line to be removed 3. Hx of CAD, s/p stent placement in 2010 -Continue ASA, Lipitor -Will resume Eliquis 2.5 BID tomorrow 4. Abdominal Distention -CT abd/pelvis: no acute findings -Meng removed, f/u voiding trial -Continue to monitor 5. GI ppx -Pepcid 20mg daily -Will resume Eliquis 2.5 BID tomorrow <Wilfredo Santa - Last Filed: 10/19/16 15:21> Objective - Vital Signs/Intake and Output Vital Signs (last 24 hours): Temp Pulse Resp BP Pulse Ox 98 F 97 H 16 129/85 96 10/19/16 12:00 10/19/16 12:00 10/19/16 12:00 10/19/16 12:00 10/19/16 06:00 Intake and Output: 10/19/16 10/19/16 06:59 18:59 Intake Total 250 Output Total 1000 Balance -750 - Medications Medications: Current Medications Acetaminophen (Tylenol 325mg Tab) 650 mg PO Q4H PRN PRN Reason: Pain, Mild (1-3) Last Admin: 10/19/16 09:25 Dose: 650 mg Apixaban (Eliquis) 2.5 mg PO BID [facility] PRN Reason: Protocol Aspirin (Ecotrin) 81 mg PO DAILY [facility] Last Admin: 10/19/16 10:06 Dose: 81 mg Atorvastatin Calcium (Lipitor) 20 mg PO DIN [facility] Last Admin: 10/18/16 17:13 Dose: 20 mg Bisacodyl (Dulcolax) 5 mg PO DAILY PRN PRN Reason: Constipation Last Admin: 10/18/16 18:46 Dose: 5 mg Docusate Sodium (Colace Liquid) 240 mg PO HS [facility] Last Admin: 10/18/16 22:42 Dose: 240 mg Enoxaparin Sodium (Lovenox) 70 mg SC Q12H [facility] PRN Reason: Protocol Last Admin: 10/19/16 05:56 Dose: 70 mg Famotidine (Pepcid) 20 mg PO DAILY PRN PRN Reason: GI distress Oxycodone/Acetaminophen (Percocet 5/325 Mg Tab) 1 tab PO Q6H PRN PRN Reason: Pain, moderate (4-7) Stop: 10/19/16 16:55 Last Admin: 10/18/16 08:25 Dose: 1 tab - Labs Labs: 10/19/16 04:30 10/19/16 04:30 PT 11.4 Seconds (9.9-11.8) 10/16/16 11:55 INR 1.06 (0.93-1.08) 10/16/16 11:55 APTT 26.1 Seconds (23.7-30.8) 10/16/16 11:55 Attending/Attestation - Attestation I have personally seen and examined this patient.: Yes I have fully participated in the care of the patient.: Yes I have reviewed all pertinent clinical information, including history, physical exam and plan: Yes Notes (Text): I have seen and examined the patient at bedside. Briefly this is 76 year old male with history of CAD s/p stents, HTN, dyslipidemia, carotid stenosis, CHF ( EF20%), s/p AICD who underwent left carotid stent placement in IR brought to ICU for management of severe hypotension. He is of of levophed since yesterday evening. Patient is sitting on the recliner. is at the bedside. Meng was discontinued this morning. Denies any complaints. Currently on lovenox. Plan to start eliquis tomorrow. Upon discharge patient will follow up with Dr Fredi Cote. Dr Wilfredo Santa
[2016-10-19 04:55] LABS: ADD MANUAL DIFF? NO
[2016-10-19 05:19] LABS: BASO # 0.03 K/mm3 (0.0-2.0); BASO % 0.6 % (0.0-3.0); EOS # 0.2 (0.0-0.7); EOS % 3.7 % (1.5-5.0); GRAN # 2.98 (1.4-6.5); GRAN % 54.6 % (50.0-68.0); LYMPH # 1.5 (1.2-3.4); LYMPH % 27.9 % (22.0-35.0); MEAN CELL VOLUME 94.6 fl (80.0-105.0); MEAN CORPUSCULAR HEMOGLOBIN 30.3 pg (25.0-35.0); MONO # 0.7 (0.1-0.6); MONO % 13.2 % (1.0-6.0); PLATELET COUNT 243 10^3/uL (120.0-450.0); RED CELL DISTRIBUTION WIDTH 13.4 % (11.5-14.5); WHITE BLOOD COUNT 5.5 10^3/ul (4.5-11.0)
[2016-10-19] MEDS: Enoxaparin 80 mg Syringe SC SCH ×2 (05:56→17:00)
[2016-10-19 06:39] LABS: ALB/GLOB RATIO 1.3 (1.1-1.8); ALKALINE PHOSPHATASE 54 U/L (38-133); ALT/SGPT 27 U/L (7-56); AST/SGOT 24 U/L (15-59); BILIRUBIN,TOTAL 0.3 mg/dL (0.2-1.3); BLOOD UREA NITROGEN 16 mg/dL (7-21); CALCIUM 8.8 mg/dL (8.4-10.5); CARBON DIOXIDE 24 mmol/L (21-33); CHLORIDE 108 mmol/L (95-110); GFR AFRICAN-AMERICAN > 60; GLUCOSE,RANDOM 90 mg/dL (70-110); POTASSIUM 4.5 mmol/L (3.6-5.0); SODIUM 141 mmol/L (132-148); TOTAL PROTEIN 5.9 g/dL (5.8-8.3)
--- NOTE | 2016-10-19 11:18 | CP.PCM.DIS ---
Provider - Provider Date of Admission: 10/16/16 17:01 Attending physician: Wilfredo Santa MD Time Spent in preparation of Discharge (in minutes): 35 Hospital Course - Lab Results Lab Results: Most Recent Lab Values WBC 5.5 10^3/ul (4.5-11.0) 10/19/16 04:30 RBC 3.17 10^6/uL (3.5-6.1) L 10/19/16 04:30 Hgb 9.6 g/dL (14.0-18.0) L 10/19/16 04:30 Hct 30.0 % (42.0-52.0) L 10/19/16 04:30 MCV 94.6 fl (80.0-105.0) 10/19/16 04:30 MCH 30.3 pg (25.0-35.0) 10/19/16 04:30 MCHC 32.0 g/dl (31.0-37.0) 10/19/16 04:30 RDW 13.4 % (11.5-14.5) 10/19/16 04:30 Plt Count 243 10^3/uL (120.0-450.0) 10/19/16 04:30 MPV 10.0 fl (7.0-11.0) 10/19/16 04:30 Gran % 54.6 % (50.0-68.0) 10/19/16 04:30 Lymph % (Auto) 27.9 % (22.0-35.0) 10/19/16 04:30 [place] % (Auto) 13.2 % (1.0-6.0) H 10/19/16 04:30 Eos % (Auto) 3.7 % (1.5-5.0) 10/19/16 04:30 Baso % (Auto) 0.6 % (0.0-3.0) 10/19/16 04:30 Gran # 2.98 (1.4-6.5) 10/19/16 04:30 Lymph # 1.5 (1.2-3.4) 10/19/16 04:30 [place] # 0.7 (0.1-0.6) H 10/19/16 04:30 Eos # 0.2 (0.0-0.7) 10/19/16 04:30 Baso # 0.03 K/mm3 (0.0-2.0) 10/19/16 04:30 PT 11.4 Seconds (9.9-11.8) 10/16/16 11:55 INR 1.06 (0.93-1.08) 10/16/16 11:55 APTT 26.1 Seconds (23.7-30.8) 10/16/16 11:55 Sodium 141 mmol/L (132-148) 10/19/16 04:30 Potassium 4.5 mmol/L (3.6-5.0) 10/19/16 04:30 Chloride 108 mmol/L (95-110) 10/19/16 04:30 Carbon Dioxide 24 mmol/L (21-33) 10/19/16 04:30 Anion Gap 14 (10-20) 10/19/16 04:30 BUN 16 mg/dL (7-21) 10/19/16 04:30 Creatinine 1.2 mg/dL (0.5-1.4) 10/19/16 04:30 Est GFR ( Amer) > 60 10/19/16 04:30 Est GFR (Non-Af Amer) 59 10/19/16 04:30 Random Glucose 90 mg/dL (70-110) 10/19/16 04:30 Calcium 8.8 mg/dL (8.4-10.5) 10/19/16 04:30 Total Bilirubin 0.3 mg/dL (0.2-1.3) 10/19/16 04:30 AST 24 U/L (15-59) 10/19/16 04:30 ALT 27 U/L (7-56) 10/19/16 04:30 Alkaline Phosphatase 54 U/L (38-133) 10/19/16 04:30 Total Protein 5.9 g/dL (5.8-8.3) 10/19/16 04:30 Albumin 3.3 g/dL (3.0-4.8) 10/19/16 04:30 Globulin 2.5 gm/dL 10/19/16 04:30 Albumin/Globulin Ratio 1.3 (1.1-1.8) 10/19/16 04:30 Discharge Exam - Head Exam Head Exam: NORMAL INSPECTION, NORMOCEPHALIC Discharge Plan - Follow Up Plan Condition: GOOD Disposition: HOME/ ROUTINE
--- NOTE | 2016-10-19 16:43 | CP.PCM.PN ---
<Allyn Garcia - Last Filed: 10/19/16 16:47> Subjective - Date & Time of Evaluation Date of Evaluation: 10/19/16 Time of Evaluation: 07:15 - Subjective Subjective: Allyn Garcia DO, PGY-1, Internal Medicine, Hospitalist Service Patient seen and examined at bedside. Per nursing no acute events overnight. Patient is doing well, pain is controlled. Tolerating diet. Denies headaches, dizziness, cp, sob, palpitations, abdominal pain, urinary symptoms. Objective - Vital Signs/Intake and Output Vital Signs (last 24 hours): Temp Pulse Resp BP Pulse Ox 98 F 97 H 16 129/85 96 10/19/16 12:00 10/19/16 12:00 10/19/16 12:00 10/19/16 12:00 10/19/16 06:00 Intake and Output: 10/19/16 10/19/16 06:59 18:59 Intake Total 250 360 Output Total 1000 500 Balance -750 -140 - Medications Medications: Current Medications Acetaminophen (Tylenol 325mg Tab) 650 mg PO Q4H PRN PRN Reason: Pain, Mild (1-3) Last Admin: 10/19/16 09:25 Dose: 650 mg Apixaban (Eliquis) 2.5 mg PO BID [facility] PRN Reason: Protocol Aspirin (Ecotrin) 81 mg PO DAILY [facility] Last Admin: 10/19/16 10:06 Dose: 81 mg Atorvastatin Calcium (Lipitor) 20 mg PO DIN [facility] Last Admin: 10/18/16 17:13 Dose: 20 mg Bisacodyl (Dulcolax) 5 mg PO DAILY PRN PRN Reason: Constipation Last Admin: 10/18/16 18:46 Dose: 5 mg Docusate Sodium (Colace Liquid) 240 mg PO HS [facility] Last Admin: 10/18/16 22:42 Dose: 240 mg Enoxaparin Sodium (Lovenox) 70 mg SC Q12H [facility] PRN Reason: Protocol Last Admin: 10/19/16 05:56 Dose: 70 mg Famotidine (Pepcid) 20 mg PO DAILY PRN PRN Reason: GI distress Oxycodone/Acetaminophen (Percocet 5/325 Mg Tab) 1 tab PO Q6H PRN PRN Reason: Pain, moderate (4-7) Stop: 10/19/16 16:55 Last Admin: 10/18/16 08:25 Dose: 1 tab - Labs Labs: 10/19/16 04:30 10/19/16 04:30 PT 11.4 Seconds (9.9-11.8) 10/16/16 11:55 INR 1.06 (0.93-1.08) 10/16/16 11:55 APTT 26.1 Seconds (23.7-30.8) 10/16/16 11:55 - Constitutional Appears: Well, No Acute Distress - Head Exam Head Exam: ATRAUMATIC, NORMAL INSPECTION - Eye Exam Eye Exam: EOMI, Normal appearance Pupil Exam: NORMAL ACCOMODATION - ENT Exam ENT Exam: Mucous Membranes Moist - Neck Exam Neck Exam: Full ROM Additional comments: Dressing c/d/i - Respiratory Exam Respiratory Exam: Clear to Ausculation Bilateral, NORMAL BREATHING PATTERN. absent: Rales, Rhonchi, Wheezes - Cardiovascular Exam Cardiovascular Exam: REGULAR RHYTHM, +S1, +S2 - GI/Abdominal Exam GI & Abdominal Exam: Soft, Normal Bowel Sounds. absent: Guarding, Rigid, Tenderness, Rebound - Extremities Exam Extremities Exam: absent: Calf Tenderness, Pedal Edema Additional comments: Groin dressing with bloody drainage, pressure applied and redressed - Back Exam Back Exam: NORMAL INSPECTION - Neurological Exam Neurological Exam: Alert, Awake, Oriented x3 - Psychiatric Exam Psychiatric exam: Normal Affect, Normal Mood - Skin Skin Exam: Normal Color, Warm Assessment and Plan - Assessment and Plan (Free Text) Assessment: 76 M with pmhx of CAD, hypertension, hypercholesterolemia, carotid stenosis s/p L ICA stent POD#2 presented post op with hypotension and AMS Plan: 1. Carotid Stenosis s/p L ICA stent placement POD#2 -Stable, afebrile, AAO x3 -Groin dressing changed this morning, by mid afternoon, dressing had more bloody drainage -Eliqujaneth held, will be seen by Dr Cote this evening, will continue to monitor bleeding -F/U am CBC -Pain control prn: Percocet -Continue Dulcolax and Colace for constipation -Carotid artery US showing widely patent proximal L ICA stent 2. Hypotension requiring pressors -Levophed titrated off since yesterday -BPs stable at baseline -Continue to monitor BPs -Goal SBP > 75 -Continue to hold home antihypertensive medications -R IJ and arterial line removed yesterday 3. Hx of CAD, s/p stent placement in 2011 -Continue ASA, Lipitor -Recieved morning dose of eliquis, will hold eliquis at this time 4. Abdominal Distention -CT abd/pelvis: no acute findings -Meng removed yesterday, voiding freely -Continue to monitor 5. GI ppx -Pepcid 20mg daily -Eliquis on hold <Wilfredo Santa - Last Filed: 10/20/16 12:20> Objective - Vital Signs/Intake and Output Vital Signs (last 24 hours): Temp Pulse Resp BP Pulse Ox 98.6 F 107 H 20 137/81 95 10/20/16 06:00 10/20/16 10:00 10/20/16 06:00 10/20/16 06:00 10/20/16 00:01 Intake and Output: 10/20/16 10/20/16 06:59 18:59 Intake Total 360 Output Total 1725 Balance -1365 - Medications Medications: Current Medications Acetaminophen (Tylenol 325mg Tab) 650 mg PO Q4H PRN PRN Reason: Pain, Mild (1-3) Last Admin: 10/20/16 10:57 Dose: 650 mg Apixaban (Eliquis) 2.5 mg PO BID [facility] PRN Reason: Protocol Last Admin: 10/20/16 10:59 Dose: 2.5 mg Aspirin (Ecotrin) 81 mg PO DAILY [facility] Last Admin: 10/20/16 10:57 Dose: 81 mg Atorvastatin Calcium (Lipitor) 20 mg PO DIN [facility] Last Admin: 10/19/16 18:26 Dose: 20 mg Bisacodyl (Dulcolax) 5 mg PO DAILY PRN PRN Reason: Constipation Last Admin: 10/18/16 18:46 Dose: 5 mg Docusate Sodium (Colace Liquid) 240 mg PO HS [facility] Last Admin: 10/19/16 21:42 Dose: 240 mg Enoxaparin Sodium (Lovenox) 70 mg SC Q12H [facility] PRN Reason: Protocol Last Admin: 10/19/16 17:00 Dose: Not Given Famotidine (Pepcid) 20 mg PO DAILY PRN PRN Reason: GI distress - Labs Labs: 10/20/16 07:15 10/20/16 07:15 PT 11.4 Seconds (9.9-11.8) 10/16/16 11:55 INR 1.06 (0.93-1.08) 10/16/16 11:55 APTT 26.1 Seconds (23.7-30.8) 10/16/16 11:55 Attending/Attestation - Attestation I have personally seen and examined this patient.: Yes I have fully participated in the care of the patient.: Yes I have reviewed all pertinent clinical information, including history, physical exam and plan: Yes Notes (Text): I have seen and examined the patient at bedside. Briefly this is 76 year old male with history of CAD s/p stents, HTN, dyslipidemia, carotid stenosis, CHF ( EF20%), s/p AICD who underwent left carotid stent placement in IR brought to ICU for management of severe hypotension. Patient denies any complaints. He has been off of vasopressors. This morning he had slight bleeding from the right groin site. Dressing was changed and in the evening bleeding was again noted. Call placed to Dr Cote who recommended to continue to observe the patient overnight. Plan to start eliquis tomorrow if bleeding stops. Upon discharge patient will follow up with Dr Fredi Cote. Dr Wilfredo Santa
[2016-10-20 01:49] VITALS: O2SAT 95
[2016-10-20 07:40] LABS: ALB/GLOB RATIO 1.3 (1.1-1.8); ALKALINE PHOSPHATASE 63 U/L (38-133); ALT/SGPT 34 U/L (7-56); AST/SGOT 33 U/L (15-59); BILIRUBIN,TOTAL 0.4 mg/dL (0.2-1.3); BLOOD UREA NITROGEN 16 mg/dL (7-21); CALCIUM 9.1 mg/dL (8.4-10.5); CARBON DIOXIDE 26 mmol/L (21-33); CHLORIDE 106 mmol/L (98-107); GFR AFRICAN-AMERICAN > 60; GLUCOSE,RANDOM 100 mg/dL (70-110); POTASSIUM 4.5 mmol/L (3.6-5.0); SODIUM 141 mmol/L (132-148); TOTAL PROTEIN 6.7 g/dL (5.8-8.3)
[2016-10-20 07:44] LABS: BASO # 0.03 K/mm3 (0.0-2.0); BASO % 0.5 % (0.0-3.0); EOS # 0.2 (0.0-0.7); EOS % 3.3 % (1.5-5.0); GRAN # 2.91 (1.4-6.5); GRAN % 50.6 % (50.0-68.0); HEMATOCRIT 32.8 % (42.0-52.0); LYMPH # 1.8 (1.2-3.4); LYMPH % 30.8 % (22.0-35.0); MEAN CELL VOLUME 94.3 fl (80.0-105.0); MEAN CORPUSCULAR HEMOGLOBIN 30.7 pg (25.0-35.0); MEAN CORPUSCULAR HGB CONC 32.6 g/dl (31.0-37.0); MEAN PLATELET VOLUME 10.2 fl (7.0-11.0); MONO # 0.9 (0.1-0.6); MONO % 14.8 % (1.0-6.0); RED CELL DISTRIBUTION WIDTH 13.4 % (11.5-14.5); WHITE BLOOD COUNT 5.8 10^3/ul (4.5-11.0)
--- NOTE | 2016-10-20 12:28 | CP.PCM.DIS ---
Provider - Provider Date of Admission: 10/16/16 17:01 Attending physician: Wilfredo Snata MD Primary care physician: Dr Fredi Cote Consults: Dr Sohail Partdia IR Time Spent in preparation of Discharge (in minutes): 35 Hospital Course - Lab Results Lab Results: Most Recent Lab Values WBC 5.8 10^3/ul (4.5-11.0) 10/20/16 07:15 RBC 3.48 10^6/uL (3.5-6.1) L 10/20/16 07:15 Hgb 10.7 g/dL (14.0-18.0) L 10/20/16 07:15 Hct 32.8 % (42.0-52.0) L 10/20/16 07:15 MCV 94.3 fl (80.0-105.0) 10/20/16 07:15 MCH 30.7 pg (25.0-35.0) 10/20/16 07:15 MCHC 32.6 g/dl (31.0-37.0) 10/20/16 07:15 RDW 13.4 % (11.5-14.5) 10/20/16 07:15 Plt Count 266 10^3/uL (120.0-450.0) 10/20/16 07:15 MPV 10.2 fl (7.0-11.0) 10/20/16 07:15 Gran % 50.6 % (50.0-68.0) 10/20/16 07:15 Lymph % (Auto) 30.8 % (22.0-35.0) 10/20/16 07:15 [place] % (Auto) 14.8 % (1.0-6.0) H 10/20/16 07:15 Eos % (Auto) 3.3 % (1.5-5.0) 10/20/16 07:15 Baso % (Auto) 0.5 % (0.0-3.0) 10/20/16 07:15 Gran # 2.91 (1.4-6.5) 10/20/16 07:15 Lymph # 1.8 (1.2-3.4) 10/20/16 07:15 [place] # 0.9 (0.1-0.6) H 10/20/16 07:15 Eos # 0.2 (0.0-0.7) 10/20/16 07:15 Baso # 0.03 K/mm3 (0.0-2.0) 10/20/16 07:15 PT 11.4 Seconds (9.9-11.8) 10/16/16 11:55 INR 1.06 (0.93-1.08) 10/16/16 11:55 APTT 26.1 Seconds (23.7-30.8) 10/16/16 11:55 Sodium 141 mmol/L (132-148) 10/20/16 07:15 Potassium 4.5 mmol/L (3.6-5.0) 10/20/16 07:15 Chloride 106 mmol/L (98-107) 10/20/16 07:15 Carbon Dioxide 26 mmol/L (21-33) 10/20/16 07:15 Anion Gap 14 (10-20) 10/20/16 07:15 BUN 16 mg/dL (7-21) 10/20/16 07:15 Creatinine 1.2 mg/dL (0.5-1.4) 10/20/16 07:15 Est GFR ( Amer) > 60 10/20/16 07:15 Est GFR (Non-Af Amer) 59 10/20/16 07:15 Random Glucose 100 mg/dL (70-110) 10/20/16 07:15 Calcium 9.1 mg/dL (8.4-10.5) 10/20/16 07:15 Total Bilirubin 0.4 mg/dL (0.2-1.3) 10/20/16 07:15 AST 33 U/L (15-59) 10/20/16 07:15 ALT 34 U/L (7-56) 10/20/16 07:15 Alkaline Phosphatase 63 U/L (38-133) 10/20/16 07:15 Total Protein 6.7 g/dL (5.8-8.3) 10/20/16 07:15 Albumin 3.8 g/dL (3.0-4.8) 10/20/16 07:15 Globulin 2.9 gm/dL 10/20/16 07:15 Albumin/Globulin Ratio 1.3 (1.1-1.8) 10/20/16 07:15 - Hospital Course Hospital Course: Briefly this is 76 year old male with history of CAD s/p stents, HTN, dyslipidemia, carotid stenosis, CHF (EF20%), s/p AICD, symptomatic carotid artery disease who underwent left carotid stent placement by IR and was admitted initially for management of severe hypotension. He required pressors as well. Also slight bleeding was noticed from right groin site which has stopped now. Patient denies any complaints and he is eager to go home. Last night while getting up from bed, his HR went upto 140's and while resting it was around 100. Patient was on toprol xl 100 and altace at home which was held during hospitalization due to hypotension. Today BP has improved. Will restart Toprol XL 50 mg only. Discussed in detail with Dr Rocael Rai who will see the patient on 10/24/2016 in his office. Restart eliquis as well. Dr Wilfredo Santa Discharge Exam - Head Exam Head Exam: ATRAUMATIC, NORMAL INSPECTION - Eye Exam Eye Exam: EOMI, Normal appearance Pupil Exam: PERRL - ENT Exam ENT Exam: Mucous Membranes Moist - Neck Exam Neck exam: Full Rom, Normal Inspection - Respiratory Exam Respiratory Exam: Clear to PA & Lateral, NORMAL BREATHING PATTERN - Cardiovascular Exam Cardiovascular Exam: REGULAR RHYTHM, +S1, +S2 - GI/Abdominal Exam GI & Abdominal Exam: Normal Bowel Sounds, Soft, Unremarkable. absent: Distended Additional comments: Bruising at right groin site. No hematoma noted. - Rectal Exam Rectal Exam: Deferred - Extremities Exam Extremities exam: full ROM, normal capillary refill, normal inspection, pedal pulses present - Back Exam Back exam: FULL ROM, NORMAL INSPECTION - Neurological Exam Neurological exam: Alert, CN II-XII Intact, Oriented x3, Reflexes Normal - Psychiatric Exam Psychiatric exam: Normal Affect, Normal Mood - Skin Skin Exam: Dry, Intact, Normal Color, Warm Discharge Plan - Discharge Medications Prescriptions: Metoprolol Succinate [Toprol XL] 50 mg PO DAILY #30 tab - Follow Up Plan Condition: GOOD Disposition: HOME/ ROUTINE Instructions: Coronary Artery Disease (DC), Heart Healthy Diet (DC), Hypotension (DC) Additional Instructions: Patient is clear for discharge home. Patient to follow up with Dr Cote on 2016 and with Primary doctor. Avoid heavy lifting. Tyelnol/Motrin pain prn. Please hold Ramipril. Metoprolol 50mg Daily as per Dr. Cote.
[2016-10-20 13:29] VITALS: BP 134/87; PULSE 102
[2016-10-20 14:36] VITALS: RESP 20; TEMP 97.3
== END 2016-10-20 14:38 | disposition home or self-care (01) | DRG 35 ==
LOC: SDSVAS 11:31 → CCU 17:01 → 2RSO 10-18 21:16
PROVIDERS: ADMIT Hospitalist; ATTEND Hospitalist
PROC: 037L3DZ Dilation of Left Internal Carotid Artery with Intraluminal Device, Percutaneous Approach (ICD-10-PCS; principal; 2016-10-16)
PROC: 05HM33Z Insertion of Infusion Device into Right Internal Jugular Vein, Percutaneous Approach (ICD-10-PCS; 2016-10-16)
PROC: B543ZZA Ultrasonography of Right Jugular Veins, Guidance (ICD-10-PCS; 2016-10-16)
PROC: 3E043XZ Introduction of Vasopressor into Central Vein, Percutaneous Approach (ICD-10-PCS; 2016-10-16)
DX: I65.22 Occlusion and stenosis of left carotid artery (principal); I42.8 Other cardiomyopathies; I11.0 Hypertensive heart disease with heart failure; I50.9 Heart failure, unspecified; I95.81 Postprocedural hypotension; I25.10 Atherosclerotic heart disease of native coronary artery without angina pectoris; E78.00 Pure hypercholesterolemia, unspecified; E78.5 Hyperlipidemia, unspecified; K59.00 Constipation, unspecified; R14.0 Abdominal distension (gaseous); K21.9 Gastro-esophageal reflux disease without esophagitis; M54.30 Sciatica, unspecified side; Z95.810 Presence of automatic (implantable) cardiac defibrillator; Z95.5 Presence of coronary angioplasty implant and graft

== ENCOUNTER 2017-01-28 08:52 | Observation (INO) | payer OTHER ==
[2017-01-28 09:30] VITALS: BMI 24.5
[2017-01-28 10:23] LABS: BASO # 0.04 K/mm3 (0.0-2.0); BASO % 0.5 % (0.0-3.0); EOS # 0.2 (0.0-0.7); EOS % 1.9 % (1.5-5.0); GRAN # 5.39 (1.4-6.5); GRAN % 63.5 % (50.0-68.0); LYMPH # 2.1 (1.2-3.4); LYMPH % 24.3 % (22.0-35.0); MEAN CORPUSCULAR HEMOGLOBIN 29.4 pg (25.0-35.0); MEAN CORPUSCULAR HGB CONC 31.9 g/dl (31.0-37.0); MEAN PLATELET VOLUME 10.2 fl (7.0-11.0); MONO # 0.8 (0.1-0.6); MONO % 9.8 % (1.0-6.0); RED CELL DISTRIBUTION WIDTH 13.3 % (11.5-14.5); WHITE BLOOD COUNT 8.5 10^3/ul (4.5-11.0)
[2017-01-28 10:34] LABS: ALB/GLOB RATIO 1.2 (1.1-1.8); ALKALINE PHOSPHATASE 76 U/L (38-126); ALT/SGPT 21 U/L (7-56); AST/SGOT 22 U/L (17-59); BILIRUBIN,TOTAL 0.8 mg/dL (0.2-1.3); BLOOD UREA NITROGEN 22 mg/dL (7-21); CALCIUM 9.5 mg/dL (8.4-10.5); CARBON DIOXIDE 26 mmol/L (21-33); CHLORIDE 106 mmol/L (98-107); GFR AFRICAN-AMERICAN > 60; GLUCOSE,RANDOM 105 mg/dL (70-110); SODIUM 140 mmol/L (132-148); TOTAL PROTEIN 7.6 g/dL (5.8-8.3)
[2017-01-28 10:43] LABS: INR 1.43 (0.93-1.08)
[2017-01-28] MEDS ORDERED: Piperacillin/Tazobact 3.375 gm 100 ML IVPB STA (11:20)
[2017-01-28] MEDS ORDERED: Vancomycin 1gm in NS 250ml 250 ML IVPB STA (11:20)
[2017-01-28] MEDS ORDERED: Vancomycin 1gm in NS 250ml 1 GM/250 ML BAG IVPB STA (11:21)
--- NOTE | 2017-01-28 11:51 | ED PDOC ---
Arrival/HPI - General Chief Complaint: Lower Extremity Problem/Injury Time Seen by Provider: 01/28/17 09:37 Historian: Patient - History of Present Illness Narrative History of Present Illness (Text): 01/28/17 12:01 76-year-old male presents today with a 4 day history of right anterior foot pain and a 2 day history of redness and swelling. Patient complaining of difficulty with ambulation due to the pain. Denies fevers at home but states he' s been having some chills. Denies chest pain or shortness of breath. Denies numbness weakness or tingling in the extremity. Patient states he has a history of gout but has not had gout in the posterior foot before. Took Tylenol for pain without improvement at home. Denies any recent trauma or injury. No other complaints Time/Duration: Other (4 days) Symptom Onset: Gradual Symptom Course: Worsening Quality: Aching Severity Level: 5 Past Medical History - Provider Review Nursing Documentation Reviewed: Yes - Travel History Have you recently traveled outside [place] w/in the past 3 mons?: No - Tetanus Immunization Tetanus Immunization: Unknown - Cardiac Hx Cardiac Disorders: Yes (CARDIOMYOPATHY,CAROTID STENOSIS) Hx Congestive Heart Failure: Yes Hx ME: Yes Hx Hypertension: Yes Hx Pacemaker: Yes - Pulmonary Hx Respiratory Disorders: No - Neurological Hx Neurological Disorder: Yes Hx Dizziness: Yes (FAINTING,SYNCOPE) Hx Syncope: Yes Hx Transient Ischemic Attacks (TIA): Yes - HEENT Hx HEENT Disorder: No - Renal Hx Renal Disorder: No (denies) - Endocrine/Metabolic Hx Endocrine Disorders: No (denies) - Hematological/Oncological Hx Blood Disorders: No - Integumentary Hx Dermatological Disorder: No - Musculoskeletal/Rheumatological Hx Musculoskeletal Disorders: Yes (SCIATICA-LUMBAR EPIDURALS) Hx Falls: Yes Hx Gout: Yes - Gastrointestinal Hx Gastrointestinal Disorders: Yes (CONSTIPATION) Hx Constipation: Yes - Genitourinary/Gynecological Hx Genitourinary Disorders: No - Psychiatric Hx Psychophysiologic Disorder: No Hx Emotional Abuse: No Hx Physical Abuse: No Hx Substance Use: No Other/Comment: ETOH SOCIALLY - Surgical History Hx Cardiac Catheterization: Yes (X3) H[facility]: [facility] Other/Comment: CARDIAC CATH X 3 WITH 2 HEART STENTS.2010 AND 2013. CAROTID ENDARTERECTOMY. TLC -RIGHT JUGULAR 10-16-16 - Anesthesia Hx Anesthesia: Yes Hx Anesthesia Reactions: No Hx Malignant Hyperthermia: No - Suicidal Assessment Feels Threatened In Home Enviroment: No Family/Social History - Physician Review Nursing Documentation Reviewed: Yes Family/Social History: Unknown Family HX Smoking Status: Never Smoked Hx Alcohol Use: No (H/O QUIT) Hx Substance Use: No Allergies/Home Meds Allergies/Adverse Reactions: Allergies No Known Allergies Allergy (Verified 10/16/16 20:29) Home Medications: Home Meds Medication Instructions Recorded Confirmed Docusate Calcium 240 mg PO HS 06/12/16 01/28/17 Aspirin [Aspirin EC] 325 mg PO DAILY 10/12/16 01/28/17 Famotidine [Pepcid] 20 mg PO DAILY PRN 10/12/16 01/28/17 Apixaban [Eliquis] 2.5 mg PO BID 10/16/16 01/28/17 Ferrous Fumarate/Iron Ps Cplx 1 cap PO DAILY 10/16/16 01/28/17 [Tandem Dual Action Capsule] Simvastatin 40 mg PO DAILY 10/16/16 01/28/17 Cholecalciferol [Vitamin D 1000 IU] 2,000 iu PO DAILY 01/28/17 01/28/17 Metoprolol Succinate [Toprol XL] 100 mg PO DAILY 01/28/17 01/28/17 Ramipril [Altace] 5 mg PO DAILY 01/28/17 01/28/17 Tamsulosin [Flomax] 0.4 mg PO DAILY 01/28/17 01/28/17 Review of Systems - Review of Systems Constitutional: Other (chills). absent: Fatigue Respiratory: absent: SOB, Cough Cardiovascular: absent: Chest Pain, Palpitations Gastrointestinal: absent: Abdominal Pain, Nausea, Vomiting Musculoskeletal: Arthralgias. absent: Back Pain, Neck Pain Skin: Cellulitis Neurological: absent: Headache, Dizziness Physical Exam Vital Signs Reviewed: Yes Vital Signs Temp Pulse Resp BP Pulse Ox 01/28/17 10:37 88 18 132/86 99 01/28/17 09:28 97.6 F 98 H 18 138/84 96 01/28/17 09:00 98.5 F 17 139/84 97 Temperature: Afebrile Blood Pressure: Normal Pulse: Regular Respiratory Rate: Normal Appearance: Positive for: Well-Appearing, Non-Toxic, Comfortable Pain Distress: None Mental Status: Positive for: Alert and Oriented X 3 - Systems Exam Head: Present: Atraumatic Mouth: Present: Moist Mucous Membranes Neck: Present: Normal Range of Motion Respiratory/Chest: Present: Clear to Auscultation, Good Air Exchange. No: Respiratory Distress, Accessory Muscle Use Cardiovascular: Present: Regular Rate and Rhythm, Normal S1, S2. No: Murmurs Abdomen: Present: Normal Bowel Sounds. No: Tenderness, Distention, Peritoneal Signs Upper Extremity: Present: Normal Inspection Lower Extremity: Present: NORMAL PULSES, Tenderness (right foot; + ttp over achilles tendon insertion site; + erythema and edema at posterior heel. pain with dorsiflexion. no calf tenderness. ), Swelling, Erythema, Neurovascularly Intact, Capillary Refill < 2 s. No: CALF TENDERNESS, Normal ROM, Temperature Abnormalties Neurological: Present: GCS=15 Skin: Present: Warm, Dry Psychiatric: Present: Alert, Oriented x 3 Medical Decision Making ED Course and Treatment: 01/28/17 12:04 76-year-old male with a four-day history of worsening right posterior heel pain now with redness and swelling. CBC within normal limits CMP BUNs 22 X-ray of the right foot no fracture or dislocation or foreign body Blood cultures pending Vancomycin and Zosyn ordered IV Case discussed with Dr. Bonner in depth excepts observational status admission for cellulitis of the foot with infectious disease consult and orthopedic consult Case discussed with Dr. Baker who advised adding uric acid, sedimentation rate and CRP. all aspects of this case were discussed the attending of record. Impression: Cellulitis, foot Admit observational status to [facility] - Lab Interpretations Lab Results: 01/28/17 09:55 01/28/17 09:55 Lab Results 01/28/17 09:55: PT 15.8 H, INR 1.43 H, APTT 34.0 01/28/17 09:55: WBC 8.5 D, RBC 4.02, Hgb 11.8 L, Hct 37.0 L, MCV 92.0, MCH 29.4 , MCHC 31.9, RDW 13.3, Plt Count 307, MPV 10.2, Gran % 63.5, Lymph % (Auto) 24.3 , Ponce % (Auto) 9.8 H, Eos % (Auto) 1.9, Baso % (Auto) 0.5, Gran # 5.39, Lymph # 2.1, Ponce # 0.8 H, Eos # 0.2, Baso # 0.04 01/28/17 09:55: Sodium 140, Potassium 4.0, Chloride 106, Carbon Dioxide 26, Anion Gap 13, BUN 22 H, Creatinine 1.2, Est GFR ( Amer) > 60, Est GFR ( Non-Af Amer) 59, Random Glucose 105, Calcium 9.5, Total Bilirubin 0.8, AST 22, ALT 21, Alkaline Phosphatase 76, Total Protein 7.6, Albumin 4.2, Globulin 3.5, Albumin/Globulin Ratio 1.2 - RAD Interpretation Radiology Orders: 01/28/17 09:37 FOOT RIGHT 3 VIEWS ROUTINE [RAD] Stat - Medication Orders Current Medication Orders: Vancomycin HCl (Vancomycin 1gm) 1 gm in 250 mls @ 167 mls/hr IVPB STAT STA PRN Reason: Protocol Stop: 01/28/17 12:50 Discontinued Medications Piperacillin Sod/Tazobactam Sod (Zosyn 3.375 In Ns 100ml) 100 mls @ 200 mls/hr IVPB STAT STA PRN Reason: Protocol Stop: 01/28/17 11:49 Last Admin: 01/28/17 11:31 Dose: 200 mls/hr eMAR Start Stop Document 01/28/17 11:31 SF (Rec: 01/28/17 11:31 SF [id number]) Intravenous Solution Start Date 01/28/17 Start Time 11:31 End Date 01/28/17 End time 12:01 Total Infusion Time 30 Disposition/Present on Arrival - Present on Arrival Any Indicators Present on Arrival: No History of DVT/PE: No History of Uncontrolled Diabetes: No Urinary Catheter: No History of Decub. Ulcer: No History Surgical Site Infection Following: None - Disposition Have Diagnosis and Disposition been Completed?: Yes Diagnosis: Cellulitis of foot, Foot pain Disposition: HOSPITALIZED Disposition Time: 11:50 Patient Plan: Observation Patient Problems: Current Active Problems Problem Status Onset Cellulitis of foot Acute Foot pain Acute Condition: FAIR
[2017-01-28] MEDS ORDERED: DiphenhydrAMINE 50 mg/ml Inj IVP STA (13:13)
--- NOTE | 2017-01-28 13:42 | RAD ---
PROCEDURE: Right Foot Radiographs. HISTORY: foot pain/ posterior heel; red/swollen/tender COMPARISON: None. FINDINGS: BONES: Normal. No fracture. JOINTS: Normal. SOFT TISSUES: Normal. OTHER FINDINGS: None. IMPRESSION: Normal right foot radiographs.
[2017-01-28] MEDS ORDERED: Influenza Vaccine 60 mcg/0.5 mL SYR (4YR UP) IM ONE (14:56)
[2017-01-28] MEDS ORDERED: Pneumococcal 23-Valent Vaccine IM ONE (14:56)
[2017-01-28] MEDS ORDERED: Bupivacaine 0.5% Inj(30mL) IJ ONE (15:16)
[2017-01-28] MEDS ORDERED: MethylPREDNISolone Depo 40 mg/ml Inj IM ONE (15:16)
[2017-01-28 16:33] VITALS: RESP 20
--- NOTE | 2017-01-28 16:35 | RAD ---
PROCEDURE: Radiographs of the Left Shoulder HISTORY: lt sciatica COMPARISON: No prior. FINDINGS: BONES: Bone alignment and mineralization are normal. There is no acute displaced fracture or bone destruction. JOINTS: There is mild degenerative osteoarthrosis in the acromioclavicular joint. The glenohumeral joint is preserved. SOFT TISSUES: Normal. OTHER FINDINGS: A left-sided transvenous pacing device is identified. There is an endovascular aortic arch stent graft. IMPRESSION: No acute fracture or dislocation. Mild degenerative osteoarthrosis in the acromioclavicular joint.
--- NOTE | 2017-01-28 16:36 | RAD ---
PROCEDURE: Radiographs of the Lumbar Spine. HISTORY: back pain COMPARISON: No prior. FINDINGS: BONES: There is 5 mm degenerative retrolisthesis of L4 on L5. There is straightening of the lumbar spine with loss of normal lumbar lordosis. Vertebral height is normal. There is no acute fracture or bone destruction. DISC SPACES: There is severe degenerative disc disease at L4-5 and L5-S1 with anterior osteophytes, severe reduced disc heights and advanced facet arthropathy, worse at L4-5. OTHER FINDINGS: There are no pathologic soft tissue calcifications. Both sacroiliac joints are normal. IMPRESSION: Severe degenerative disc disease at L4-5 and L5-S1, worse at L4-5 with 5 mm degenerative retrolisthesis of L4 on L5.
[2017-01-28] MEDS: Piperacillin/Tazobact 3.375 gm 100 ML IVPB SCH ×2 (18:45→23:50)
--- NOTE | 2017-01-28 19:38 | CT ---
EXAM: CT Lumbar Spine Without Intravenous Contrast EXAM DATE/TIME: 01/28/2017 3:19 PM CLINICAL HISTORY: 76 years old, male; Pain; Sciatica; Left; Additional info: Lt sciatica TECHNIQUE: Axial computed tomography images of the lumbar spine without intravenous contrast. All CT scans at this facility use one or more dose reduction techniques, viz.: automated exposure control; ma/kV adjustment per patient size (including targeted exams where dose is matched to indication; i.e. head); or iterative reconstruction technique. Coronal and sagittal reformatted images were created and reviewed. COMPARISON: CT abdomen pelvis, 10/16/16 FINDINGS: Vertebrae: T12 and 5 lumbar type vertebral bodies are normal in height. There is a mild convex left lumbar curve. There are no fractures. Facet joints align anatomically. There is there is mild facet joint narrowing L3-L4 and L5-S1. Visualized portion of the sacrum is intact. Visualized sacroiliac joints are patent. Discs/spinal canal/neural foramina: There is mild posterior disc space narrowing T12-L1 L1-L2 and L2-L3 disc spaces are maintained. There is asymmetric disc space narrowing L3-L4 greatest on the right. There are degenerative spurs L3-L4 encroaching on the right neural foramina. There is severe disc space narrowing L4/L5. There is retrolisthesis L4 on L5. There is endplate sclerosis with subchondral cysts. There are degenerative osteophytes greatest on the right. There is severe narrowing of the L5-S1 disc space. There are degenerative osteophytes L5-S1 greatest on the left. Soft tissues: Psoas and paraspinous muscles are symmetric. Vasculature: There are vascular calcifications. There is a focal infrarenal abdominal aortic aneurysm, 2.47 m in maximal diameter. There is no leak. IMPRESSION: Degenerative change as described above greatest L45 and L5-S1; focal infrarenal abdominal aortic aneurysm, no leak
[2017-01-28] MEDS: Linezolid 600 mg in D5W 300 ml 600 MG/300 ML BAG IVPB SCH (21:19)
[2017-01-28] MEDS: DOCUSATE CALCIUM 240 MG PO SCH (23:14)
--- NOTE | 2017-01-29 00:30 | CON ---
DATE: 01/28/2017 LOCATION: The patient is a 76-year-old male in room 573, bed 3. I was asked to see the patient for rigid tenderness and pain of the right retrocalcaneal bursa just anterior to the Achilles tendon suggestive of bursitis and tendonitis of the Achilles tendon with no history of injury, but he had a similar episode several years ago of his left foot and heel that was cared for with a cortisone injection. He was eating quite a bit of shrimp lately with the holidays. Sed rate is elevated to 62, white count is normal, no anemia. No significant renal disease. He has tenderness to the retrocalcaneal region of the right heel in front of the Achilles tendon. I took the opportunity to inject with Depo-Medrol and Marcaine, not into the tendon but into the retrocalcaneal bursa. He does have some ecchymosis in that region. He could have a little torn capsular tissue as well. The Achilles tendon is intact. No signs of infection. He has good range of motion. No ankle effusion, so I injected the bursa anterior to the Achilles tendon with Depo-Medrol and Marcaine. I just want to reiterate the injection was not into the tendon, but into the bursa in front of the Achilles tendon. Hopefully, this will help his condition. I told him that he eat so much shrimp he might have gout, but we are waiting for the uric acid to come back. There was no fluid in the region where I did inject him with a 22-gauge needle and gave him some Depo-Medrol and Marcaine. He should wear shoes with a little heel lift that will help also. FINAL DIAGNOSIS: Retrocalcaneal bursitis suggestive of gout and component of Achilles tendonitis and hopefully, he will feel better with a cortisone injection, and I will follow him in the office if needed. We also x-rayed his left shoulder and low back because he does have associated sciatica of the left and tenderness to the left shoulder where he has a pacemaker, so we cannot have MRI. Yrn Wallace DO [facility] # [id number]
--- NOTE | 2017-01-29 00:43 | CP.PCM.PN ---
Subjective - Date & Time of Evaluation Date of Evaluation: 01/28/17 Time of Evaluation: 23:30 - Subjective Subjective: S:Patient requested a sleeping pill. Has no other complaints. Medical record was reviewed. O: Last Vital Signs 3 Temp 97.9 F 01/28/17 16:00 Pulse 85 01/28/17 16:00 Resp 20 01/28/17 16:00 BP 117/75 01/28/17 16:00 Pulse Ox 96 01/28/17 16:00 Not in distress. LUNGS:Normal breathing pattern. A:Adjustment insomnia. P:Benadryl 25 mg PO x 1. Objective - Vital Signs/Intake and Output Vital Signs (last 24 hours): Temp Pulse Resp BP Pulse Ox 97.9 F 85 20 117/75 96 01/28/17 16:00 01/28/17 16:00 01/28/17 16:00 01/28/17 16:00 01/28/17 16:00 Intake and Output: 01/28/17 01/29/17 18:59 06:59 Intake Total 360 480 Output Total 800 Balance -440 480 - Medications Medications: Current Medications Apixaban (Eliquis) 2.5 mg PO BID [place] PRN Reason: Protocol Last Admin: 01/28/17 18:46 Dose: 2.5 mg Atorvastatin Calcium (Lipitor) 20 mg PO DIN [facility] Cholecalciferol (Vitamin D) 2,000 iu PO DAILY [facility] Famotidine (Pepcid) 20 mg PO DAILY PRN PRN Reason: GI distress Piperacillin Sod/Tazobactam Sod (Zosyn 3.375 In Ns 100ml) 100 mls @ 200 mls/hr IVPB Q6 [place] PRN Reason: Protocol Stop: 02/04/17 18:01 Last Admin: 01/28/17 23:50 Dose: 200 mls/hr Linezolid (Zyvox 600mg/300ml D5w) 600 mg in 300 mls @ 200 mls/hr IVPB Q12 [place] PRN Reason: Protocol Stop: 02/04/17 22:01 Last Admin: 01/28/17 21:19 Dose: 200 mls/hr Metoprolol Succinate (Toprol Xl) 100 mg PO DAILY [facility] Non-Formulary Medication (Docusate Calcium [Docusate Calcium]) 240 mg PO HS [facility] Last Admin: 01/28/17 23:14 Dose: Not Given Ferrous Fumarate/Iron Ps Cplx [Tandem Dual Action Capsule ] 1 cap PO DAILY [facility] Ramipril (Altace) 5 mg PO DAILY [facility] Tamsulosin HCl (Flomax) 0.4 mg PO DAILY [facility] - Labs Labs: PT 15.8 SECONDS (9.4-12.5) H 01/28/17 09:55 INR 1.43 (0.93-1.08) H 01/28/17 09:55 APTT 34.0 Seconds (25.1-36.5) 01/28/17 09:55
--- NOTE | 2017-01-29 02:55 | HP ---
CHIEF COMPLAINT: Foot and ankle pain. HISTORY OF PRESENT ILLNESS: Mr. Slava Bird is a 76-year-old male with history of right anterior foot pain and with a 2-day history of redness and swelling. The patient is complaining of difficulty with ambulation due to pain. Denies fever, chills, nausea, vomiting, or diarrhea. Denies chest pain, shortness of breath. No numbness, weakness, or tingling in the extremity. The patient states that he has history of gouty, but has not had gout in the posterior foot before, took Tylenol for pain without improvement at home. Denies any recent trauma or injury. All these happened gradually. I saw the patient in the emergency room with Carol MCGREGOR. PAST MEDICAL HISTORY: Cardiomyopathy, carotid stenosis, history of CA, hypertension, congestive heart failure, pacemaker, fainting attack, dizziness, TIA, sciatica, history of falls and gouty arthritis, constipation, history of cardiac catheterization x3 and coronary stents. FAMILY HISTORY: Father and mother, noncontributory. SOCIAL HISTORY: Never smoked. No drugs. No ethanol. ALLERGIES: THE PATIENT IS NOT ALLERGIC TO ANY MEDICATIONS. HOME MEDICATIONS: Aspirin, Pepcid, Eliquis, simvastatin, vitamin D, metoprolol, Altace, Flomax. REVIEW OF SYSTEMS: The patient seen and examined at the bedside in the emergency room. was sitting on the bedside also. No nausea, vomiting, or diarrhea. No hematuria. No hematochezia. No headache. No dizziness. No chest pain or palpitations. No fever. No chills. No fatigue. No shortness of breath. No coughing. Having arthralgias. Cellulitis of the skin, foot pain. PHYSICAL EXAMINATION: VITAL SIGNS: Temperature 97.6, pulse 98, respirations 18, blood pressure 113/84, pulse oxymetry 96. HEENT: Head; normocephalic and atraumatic. Eyes; PERRLA. Extraocular muscles intact. Conjunctivae clear. Nose patent. Mucous membranes moist. NECK: Supple. No carotid bruits. No JVD or thyromegaly. CHEST: Bilaterally symmetrical. Lungs are clear to auscultation. Good air exchange. No respiratory distress. HEART: S1 and S2 positive. Regular rate and rhythm. ABDOMEN: Soft. Bowel sounds positive. No organomegaly. EXTREMITIES: Upper extremities, no cyanosis, no edema. Lower extremities, tenderness in the right foot, especially over the Achilles tendon's insertion. Positive erythema and edema at the posterior heel, pain on dorsiflexion. No calf tenderness . Range of motion is within normal limits. NEUROLOGIC: The patient is awake and alert. Moving all 4 extremities. No focal deficits. LABORATORY DATA: White blood cell count 8.5, hemoglobin 11.8, hematocrit 37.0, platelets 307. Sodium 140, potassium 4.0, BUN 22, creatinine 1.2, and glucose 105. ASSESSMENT AND PLAN: Mr. Slava Bird is a 76-year-old male with anemia; cellulitis of the foot, especially right foot; foot pain, especially at the site of the Achilles tendon insertion; history of cardiomyopathy; carotid stenosis; congestive heart failure; myocardial infarction; hypertension; fainting syncope; transient ischemic attack; sciatica, lumbar epidural injections. We admitted the patient. Podiatry and Orthopedic consults called. Discussion done with nurse practitioner. X-ray of the lumbar spine and CT of the lumbar spine and shoulder x-ray done, reviewed by me; severe degenerative disk disease at L4-5 and L5-S1, worse at L4-5 with 5 mm degenerative retrolisthesis on L4 and L5. Lumbar spine CT showed again degenerative changes, focal infrarenal abdominal aortic aneurysm, no leakage, of 2.47 mm in maximum diameter. Shoulder x-ray done, showed no acute fractures, mild degenerative osteoarthrosis in the acromioclavicular joint. Dr. Vidal and Dr. Wallace's consults called. We will put up Podiatry consult also. We will follow up. Karina Bonner MD [facility]
[2017-01-29] MEDS: Piperacillin/Tazobact 3.375 gm 100 ML IVPB SCH (06:19)
[2017-01-29 07:19] LABS: HEMATOCRIT 34.8 % (42.0-52.0); MEAN CELL VOLUME 90.9 fl (80.0-105.0); MEAN CORPUSCULAR HEMOGLOBIN 29.2 pg (25.0-35.0); MEAN CORPUSCULAR HGB CONC 32.2 g/dl (31.0-37.0); MEAN PLATELET VOLUME 9.8 fl (7.0-11.0); RED CELL DISTRIBUTION WIDTH 13.2 % (11.5-14.5); WHITE BLOOD COUNT 8.5 10^3/ul (4.5-11.0)
[2017-01-29 07:48] LABS: BLOOD UREA NITROGEN 22 mg/dL (7-21); CALCIUM 9.5 mg/dL (8.4-10.5); CARBON DIOXIDE 23 mmol/L (21-33); CHLORIDE 105 mmol/L (98-107); CHOLESTEROL 138 mg/dL (130-200); GFR AFRICAN-AMERICAN 55; GLUCOSE,RANDOM 112 mg/dL (70-110); POTASSIUM 4.4 mmol/L (3.6-5.0); SODIUM 140 mmol/L (132-148)
[2017-01-29 07:58] LABS: IRON 42 ug/dL (45-180)
[2017-01-29] MEDS: Metoprolol Succinate 50 mg XL Tab PO SCH (09:45)
[2017-01-29] MEDS: Linezolid 600 mg in D5W 300 ml 600 MG/300 ML BAG IVPB SCH ×2 (09:47→21:18)
[2017-01-29] MEDS ORDERED: Non Formulary Medication (Simvastatin [Simvastatin] 40 MG) PO SCH (10:00)
[2017-01-29] MEDS ORDERED: IRON PS CPLX PO SCH (10:00)
[2017-01-29] MEDS ORDERED: Aspirin 325 mg EC Tablets PO SCH (10:00)
[2017-01-29] MEDS ORDERED: FERROUS FUMARATE PO SCH (10:00)
--- NOTE | 2017-01-29 12:53 | CP.PCM.CON ---
History of Present Illness - History of Present Illness History of Present Illness: 76 year old male with PMH of HTN, CAD with chronic CHF, S/P pacemaker placement , history of TIA, sciatica, carotid stenosis S/P stent placement, dyslipidemia, gout came in to [facility] complaining of pain and swelling of the posterior right ankle area around the Achilles' tendon. He denies specific trauma to the foot, no fever or chills, no animal contacts, no soaking of his feet in water, no nausea or vomiting, no chest pain, no SOB, no headache or dizziness, no abdominal pain, no diarrhea, no dysuria. Imaging of the foot shows retrocalcaneal bursitis. Infectious diseases consult is requested to further evaluate and manage. Review of Systems - Review of Systems All systems: reviewed and no additional remarkable complaints except (as per HPI ) Past Patient History - Tetanus Immunizations Tetanus Immunization: Unknown - Past Social History Smoking Status: Never Smoked - CARDIAC Hx Cardiac Disorders: Yes (CARDIOMYOPATHY,CAROTID STENOSIS) Hx Congestive Heart Failure: Yes Hx Heart Attack: Yes Hx Hypertension: Yes Hx Pacemaker: Yes - PULMONARY Hx Respiratory Disorders: No - NEUROLOGICAL Hx Neurological Disorder: Yes Hx Dizziness: Yes (FAINTING,SYNCOPE) Hx Syncope: Yes Hx Transient Ischemic Attacks (TIA): Yes - HEENT Hx HEENT Problems: No - RENAL Hx Chronic Kidney Disease: No (denies) - ENDOCRINE/METABOLIC Hx Endocrine Disorders: No (denies) - HEMATOLOGICAL/ONCOLOGICAL Hx Blood Disorders: No - INTEGUMENTARY Hx Dermatological Problems: No - MUSCULOSKELETAL/RHEUMATOLOGICAL Hx Musculoskeletal Disorders: Yes (SCIATICA-LUMBAR EPIDURALS) Hx Falls: Yes Hx Gout: Yes - GASTROINTESTINAL Hx Gastrointestinal Disorders: Yes (CONSTIPATION) Hx Constipation: Yes - GENITOURINARY/GYNECOLOGICAL Hx Genitourinary Disorders: No - PSYCHIATRIC Hx Psychophysiologic Disorder: No Hx Emotional Abuse: No Hx Physical Abuse: No Hx Substance Use: No Other/Comment: ETOH SOCIALLY - SURGICAL HISTORY Hx Cardiac Catheterization: Yes (X3) Hx Coronary Stent: Yes (X2 [facility] 2010 AND 2013) Other/Comment: CARDIAC CATH X 3 WITH 2 HEART STENTS.2010 AND 2013. CAROTID ENDARTERECTOMY. TLC -RIGHT JUGULAR 10-16-16 - ANESTHESIA Hx Anesthesia: Yes Hx Anesthesia Reactions: No Hx Malignant Hyperthermia: No Meds Allergies/Adverse Reactions: Allergies Allergy/AdvReac Type Severity Reaction Status Date / Time No Known Allergies Allergy Verified 10/16/16 20:29 Physical Exam - Constitutional Appears: Non-toxic, No Acute Distress - Head Exam Head Exam: NORMAL INSPECTION - ENT Exam ENT Exam: Mucous Membranes Moist - Neck Exam Neck exam: Negative for: Lymphadenopathy, Meningismus - Respiratory Exam Respiratory Exam: Decreased Breath Sounds - Cardiovascular Exam Cardiovascular Exam: +S1, +S2 - GI/Abdominal Exam GI & Abdominal Exam: Soft. absent: Tenderness - Extremities Exam Additional comments: right Achilles' heel area with some swelling and erythema and tenderness Results - Vital Signs Recent Vital Signs: Last Vital Signs Temp 97.6 F 01/28/17 09:28 Pulse 95 H 01/28/17 12:05 Resp 17 01/28/17 12:05 BP 132/86 01/28/17 10:37 Pulse Ox 98 01/28/17 12:05 - Labs Result Diagrams: 01/29/17 06:30 01/29/17 06:30 Labs: Laboratory Results - last 24 hr 01/28/17 01/28/17 12:00 12:00 ESR 62 H Uric Acid 7.1 Assessment & Plan - Assessment and Plan (Free Text) Plan: Assessment Consider gouty arthritis / bursitis of the right Achilles' heel area, R/O skin and skin structure infection HTN CAD with chronic CHF S/P pacemaker placement history of TIA sciatica carotid stenosis S/P stent placement dyslipidemia gout Plan Started patient on Zyvox; patient has received steroid injection into the affected area will monitor clinically while the patient is in the hospital
[2017-01-29] MEDS ORDERED: MethylPREDNISolone Depo 40 mg/ml Inj IM ONE (13:44)
[2017-01-29] MEDS ORDERED: Bupivacaine 0.5% Inj(30mL) IJ ONE (13:44)
[2017-01-29 13:47] LABS: FOLATE > 20.0 ng/mL
--- NOTE | 2017-01-29 15:38 | CP.PCM.PN ---
Subjective - Date & Time of Evaluation Date of Evaluation: 01/29/17 Time of Evaluation: 15:31 - Subjective Subjective: 76 year old male with PMH of HTN, CAD with chronic CHF, S/P pacemaker placement , history of TIA, sciatica, carotid stenosis S/P stent placement, dyslipidemia, gout seen and evaluated at bedside for right heel pain. Patient denies of any recent trauma to the right foot or leg. Patient denies of any changes in the activity levels recently as well. Patient denies any recent F/N/V/C/SOB/CP. Patient denies of any other pedal complains at this time. PMHx: HTN, CAD with chronic CHF, S/P pacemaker placement, history of TIA, sciatica, carotid stenosis S/P stent placement, dyslipidemia, gout PSHx: Cardiac cath x3 with 2 heart stents, Carotid endarterectomy Allergies: N.K.D.A SHx: Denies smoking, EtOH or illicit drug usage Objective - Vital Signs/Intake and Output Vital Signs (last 24 hours): Temp Pulse Resp BP Pulse Ox 98.4 F 82 20 118/78 96 01/29/17 07:30 01/29/17 09:45 01/29/17 07:30 01/29/17 09:46 01/29/17 07:30 Intake and Output: 01/29/17 01/29/17 06:59 18:59 Intake Total 840 860 Output Total 2400 Balance 840 -1540 - Medications Medications: Current Medications Apixaban (Eliquis) 2.5 mg PO BID [facility] PRN Reason: Protocol Last Admin: 01/29/17 09:45 Dose: 2.5 mg Atorvastatin Calcium (Lipitor) 20 mg PO DIN [facility] Cholecalciferol (Vitamin D) 2,000 iu PO DAILY [facility] Last Admin: 01/29/17 09:46 Dose: 2,000 iu Famotidine (Pepcid) 20 mg PO DAILY PRN PRN Reason: GI distress Linezolid (Zyvox 600mg/300ml D5w) 600 mg in 300 mls @ 200 mls/hr IVPB Q12 [facility] PRN Reason: Protocol Stop: 02/04/17 22:01 Last Admin: 01/29/17 09:47 Dose: 200 mls/hr Metoprolol Succinate (Toprol Xl) 100 mg PO DAILY [facility] Last Admin: 01/29/17 09:45 Dose: 100 mg Non-Formulary Medication (Docusate Calcium [Docusate Calcium]) 240 mg PO HS [facility] Last Admin: 01/28/17 23:14 Dose: Not Given Ferrous Fumarate/Iron Ps Cplx [Tandem Dual Action Capsule ] 1 cap PO DAILY [facility] Ramipril (Altace) 5 mg PO DAILY [facility] Last Admin: 01/29/17 09:46 Dose: 5 mg Tamsulosin HCl (Flomax) 0.4 mg PO DAILY [facility] Last Admin: 01/29/17 09:46 Dose: 0.4 mg - Labs Labs: 01/29/17 06:30 01/29/17 06:30 PT 15.8 SECONDS (9.4-12.5) H 01/28/17 09:55 INR 1.43 (0.93-1.08) H 01/28/17 09:55 APTT 34.0 Seconds (25.1-36.5) 01/28/17 09:55
--- NOTE | 2017-01-29 15:42 | CP.PCM.CON ---
History of Present Illness - History of Present Illness History of Present Illness: 76 year old male with PMH of HTN, CAD with chronic CHF, S/P pacemaker placement , history of TIA, sciatica, carotid stenosis S/P stent placement, dyslipidemia, gout seen and evaluated at bedside for right heel pain. Patient denies of any recent trauma to the right foot or leg. Patient denies of any changes in the activity levels recently as well. Patient denies any recent F/N/V/C/SOB/CP. Patient denies of any other pedal complains at this time. PMHx: HTN, CAD with chronic CHF, S/P pacemaker placement, history of TIA, sciatica, carotid stenosis S/P stent placement, dyslipidemia, gout PSHx: Cardiac cath x3 with 2 heart stents, Carotid endarterectomy Allergies: N.K.D.A SHx: Denies smoking, EtOH or illicit drug usage Review of Systems - Constitutional Constitutional: As Per HPI Past Patient History - Tetanus Immunizations Tetanus Immunization: Unknown - Past Social History Smoking Status: Never Smoked - CARDIAC Hx Cardiac Disorders: Yes (CARDIOMYOPATHY,CAROTID STENOSIS) Hx Congestive Heart Failure: Yes Hx Heart Attack: Yes Hx Hypertension: Yes Hx Pacemaker: Yes - PULMONARY Hx Respiratory Disorders: No - NEUROLOGICAL Hx Neurological Disorder: Yes Hx Dizziness: Yes (FAINTING,SYNCOPE) Hx Syncope: Yes Hx Transient Ischemic Attacks (TIA): Yes - HEENT Hx HEENT Problems: No - RENAL Hx Chronic Kidney Disease: No (denies) - ENDOCRINE/METABOLIC Hx Endocrine Disorders: No (denies) - HEMATOLOGICAL/ONCOLOGICAL Hx Blood Disorders: No - INTEGUMENTARY Hx Dermatological Problems: No - MUSCULOSKELETAL/RHEUMATOLOGICAL Hx Musculoskeletal Disorders: Yes (SCIATICA-LUMBAR EPIDURALS) Hx Falls: Yes Hx Gout: Yes - GASTROINTESTINAL Hx Gastrointestinal Disorders: Yes (CONSTIPATION) Hx Constipation: Yes - GENITOURINARY/GYNECOLOGICAL Hx Genitourinary Disorders: No - PSYCHIATRIC Hx Psychophysiologic Disorder: No Hx Emotional Abuse: No Hx Physical Abuse: No Hx Substance Use: No Other/Comment: ETOH SOCIALLY - SURGICAL HISTORY Hx Cardiac Catheterization: Yes (X3) Hx Coronary Stent: Yes (X2 [facility] 2010 AND 2013) Other/Comment: CARDIAC CATH X 3 WITH 2 HEART STENTS.2010 AND 2013. CAROTID ENDARTERECTOMY. TLC -RIGHT JUGULAR 8-15-17 - ANESTHESIA Hx Anesthesia: Yes Hx Anesthesia Reactions: No Hx Malignant Hyperthermia: No Meds Allergies/Adverse Reactions: Allergies Allergy/AdvReac Type Severity Reaction Status Date / Time No Known Allergies Allergy Verified 10/16/16 20:29 - Medications Medications: Current Medications Apixaban (Eliquis) 2.5 mg PO BID [facility] PRN Reason: Protocol Last Admin: 01/29/17 09:45 Dose: 2.5 mg Atorvastatin Calcium (Lipitor) 20 mg PO DIN [facility] Cholecalciferol (Vitamin D) 2,000 iu PO DAILY [facility] Last Admin: 01/29/17 09:46 Dose: 2,000 iu Famotidine (Pepcid) 20 mg PO DAILY PRN PRN Reason: GI distress Linezolid (Zyvox 600mg/300ml D5w) 600 mg in 300 mls @ 200 mls/hr IVPB Q12 [facility] PRN Reason: Protocol Stop: 02/04/17 22:01 Last Admin: 01/29/17 09:47 Dose: 200 mls/hr Metoprolol Succinate (Toprol Xl) 100 mg PO DAILY [facility] Last Admin: 01/29/17 09:45 Dose: 100 mg Non-Formulary Medication (Docusate Calcium [Docusate Calcium]) 240 mg PO HS [facility] Last Admin: 01/28/17 23:14 Dose: Not Given Ferrous Fumarate/Iron Ps Cplx [Tandem Dual Action Capsule ] 1 cap PO DAILY [facility] Ramipril (Altace) 5 mg PO DAILY [facility] Last Admin: 01/29/17 09:46 Dose: 5 mg Tamsulosin HCl (Flomax) 0.4 mg PO DAILY [facility] Last Admin: 01/29/17 09:46 Dose: 0.4 mg Physical Exam - Constitutional Appears: Well, Non-toxic, No Acute Distress - Extremities Exam Additional comments: Bilateral LE exam: VASC: DP/PT pulses are palpable 1/4, Cap refill time: < 3 sec to all digits, Temp gradient: warm to cool from proximal to distal, mild non-pitting edema noted on the posterior aspect of the right heel DERM: Localized erythema noted on the posterior aspect of the right heel, no open lesions NEURO: Protective sensation grossly intact ORTHO: Tenderness on palpation of the posterior aspect of the right heel - Neurological Exam Neurological exam: Alert, Oriented x3 - Psychiatric Exam Psychiatric exam: Normal Affect, Normal Mood Results - Vital Signs Recent Vital Signs: Last Vital Signs Temp 98.4 F 01/29/17 07:30 Pulse 82 01/29/17 09:45 Resp 20 01/29/17 07:30 BP 118/78 01/29/17 09:46 Pulse Ox 96 01/29/17 07:30 - Labs Result Diagrams: 01/29/17 06:30 01/29/17 06:30 Labs: Laboratory Results - last 24 hr 01/28/17 01/29/17 01/29/17 12:30 06:30 06:30 WBC RBC Hgb Hct MCV MCH MCHC RDW Plt Count MPV Sodium Potassium Chloride Carbon Dioxide Anion Gap BUN Creatinine Est GFR ( Amer) Est GFR (Non-Af Amer) Random Glucose Hemoglobin A1c 5.9 Calcium Iron 42 L TIBC 306 % Saturation 14 L C-React Prot High Sens > 15.00 H Triglycerides Cholesterol LDL Cholesterol Direct HDL Cholesterol Folate TSH 3rd Generation 01/29/17 01/29/17 01/29/17 06:30 06:30 06:30 WBC 8.5 RBC 3.83 Hgb 11.2 L Hct 34.8 L MCV 90.9 MCH 29.2 MCHC 32.2 RDW 13.2 Plt Count 271 MPV 9.8 Sodium 140 Potassium 4.4 Chloride 105 Carbon Dioxide 23 Anion Gap 16 BUN 22 H Creatinine 1.5 Est GFR ( Amer) 55 Est GFR (Non-Af Amer) 46 Random Glucose 112 H Hemoglobin A1c Calcium 9.5 Iron TIBC % Saturation C-React Prot High Sens Triglycerides 84 Cholesterol 138 LDL Cholesterol Direct 84 HDL Cholesterol 38 Folate > 20.0 TSH 3rd Generation 0.44 L Assessment & Plan - Assessment and Plan (Free Text) Assessment: 76 y/o male with PMHx of HTN, CAD with chronic CHF, S/P pacemaker placement, history of TIA, sciatica, carotid stenosis S/P stent placement, dyslipidemia, gout seen and evaluated for right posterior calc pain secondary to retrocalc bursitis vs. Achilles tendonitis Plan: Patient seen and evaluated at bedside with attending Dr. Fernandez (Patient was seen right after Dr. Wallace's visit) Labs vitals and charts reviewed - afebrile, WBC @ 8.5 today X-rays of the right foot reviewed Patient received an injection on posterior heel by Dr. Wallace Podiatry agrees with Dr. Wallace's plan - will continue patient care Patient is stable from podiatry standpoint - Please re-consult podiatry if needed - Date & Time Date: 01/29/17 Time: 15:46
[2017-01-29] MEDS: DOCUSATE CALCIUM 240 MG PO SCH (21:40)
--- NOTE | 2017-01-29 23:17 | PN ---
DATE: SUBJECTIVE: The patient is a 76-year-old male. The patient is seen and examined at the bedside. There is no big change in the status. still had ankle pain No fever. No chills. No hematuria or hematochezia. got inj. from master No swelling of the leg except ankle red . No chest pain. No palpitation. PHYSICAL EXAMINATION: VITAL SIGNS: Temperature 98.4, pulse 82, blood pressure 118/78, and respiratory rate 20. HEENT: Head is normocephalic and atraumatic. Eyes; extraocular muscles intact. Conjunctivae clear. Nose is patent. NECK: Supple. No carotid bruits. No JVD or thyromegaly. CHEST: Bilaterally symmetrical. HEART: S1 and S2 positive. LUNGS: Clear to auscultation. ABDOMEN: Soft. Bowel sounds present. No organomegaly. EXTREMITIES: No edema. No cyanosis. NEUROLOGICAL: The patient is awake and alert. Moving all 4 extremities. No focal deficit. MEDICATIONS: Altace, docusate, ferrous sulfate, Flomax, Lipitor, Pepcid, Toprol, vitamin D, and Zyvox. LABORATORY DATA: White blood cells 8.5, hemoglobin 11.2, hematocrit 34.8, and platelets are 271. Sodium 140, potassium is 4.4, BUN 22, creatinine is 1.5, glucose 112, and iron 42. ASSESSMENT AND PLAN: Mr. Slava Bird is a 76-year-old male with anemia, increased BUN, hyperglycemia, iron deficiency, and hyperthyroidism. Seen by Dr. Ogden, Infectious Disease. The patient has a history of hypertension, coronary artery disease, congestive heart failure, status post pacemaker placement, history of transient ischemic attack, sciatica, carotid stenosis, status post stent placement, dyslipidemia, gouty arthritis, bursitis of the right Achilles head heel area red and infection. Started the patient on Zyvox. The patient has received steroid injection into the affected area. We will monitor clinically while the patient is in the hospital. The patient wants to be discharged home, but not ready for that. Has pain in the right posterior calcaneus, may be due to retrocalcaneal bursitis versus Achilles tendonitis. The patient is seen by Dr. Wallace, Dr. Fernandez, and Infectious Disease. Dr. Wallace gave injection. Continue present treatment. GI and DVT prophylaxis. Repeat labs. We will follow up. Karina Bonner MD [facility]
--- NOTE | 2017-01-30 08:36 | CON ---
DATE: 01/29/2017 The patient is a 77-year-old male. The patient had a consult yesterday for his right foot discomfort, felt to be a retrocalcaneal bursitis and tendonitis, so that was injected with Depo-Medrol and Marcaine. Then, when I saw him today, he had no tenderness at all to that region that I injected just behind the talocalcaneal joint of the ankle, but today, he has some hyperemia of the skin posterior to insertion of the Achilles tendon below the calcaneus of the posterior facet and he does have sort of like a posterior spur of the heel. Seen on lateral, he has a prominent calcaneal process that could cause symptoms of chronic tendinitis. Some tendon needs to be resected at posterior calcaneus. The first injection helped him which was just posterior to the retrocalcaneal bursa and out today, it is over the insertion of the Achilles tendon that was careful to clean it with the alcohol swab and palpating. There appeared to be some fluid in the retrocalcaneal tendon bursa, so I numbed it up and put an 18-gauge needle in. I was unable to express any fluid, but it certainly felt like it did have fluid there, so I injecting Depo-Medrol and Marcaine in that region because he did have hyperemia in that area or either tendinitis or even inflammatory arthritic condition, but his ER gas is normal. He also had some tenderness to the left shoulder. X-ray shows definite subacromial impingement with evidence of chronic bursitis and AC joint arthritis, I suspicious for rotator cuff tendinopathy. So, I injected the trigger point there with Depo-Medrol and Marcaine also. We will see how he feels tomorrow. So, what he is seen for today is looked different what it was yesterday. He had a subacromial impingement with bursitis on the left shoulder, rotator cuff disease with chronic changes of the small rotator cuff tear and AC joint arthritis. He has a calcaneal posterior process tendonitis which was injected in both area to see how he does with the new injections as he did feel better with the first injection, having no symptoms of retrocalcaneal bursitis retrocalcaneal tendon bursa inflamed and the biceps tendonitis and rotator cuff tendonitis and AC joint tendonitis. Yrn Wallace DO
[2017-01-30 09:28] VITALS: BP 123/81; PULSE 86; TEMP 98; O2SAT 95
--- NOTE | 2017-01-30 10:32 | PN ---
DATE: 01/30/2017 LOCATION: In room 573, bed 3. SUBJECTIVE: The patient underwent two injections yesterday of his left inflamed heel, posterior to the Achilles tendon and distal, in the region of a bursal effusion, and also has left shoulder osteoarthritis with subacromial impingement and signs of rotator cuff tear, no surgery is necessary. The cortisone shot that I did yesterday helped him. Today, he has much less pain. He has a strong desire to go home and I think I will allow him as he probably could be taken care of as an outpatient. So he does want to go home, he could walk better, no pain, and I could follow him in the office. He may need electric motor winder in the future if the joint inflammations recur, but it looks like a picture of gouty arthritis as he did have a lot of shrimp soon before the symptoms started about a week ago. I told him to stay away from the shellfish and take a lot of fluids if he does eat gouty or uric acid reducing foods. I will see him as an outpatient as needed. Hopefully, he could go home today. Yrn Wallace DO
[2017-01-30] MEDS: Metoprolol Succinate 50 mg XL Tab PO SCH (10:33)
[2017-01-30] MEDS: Linezolid 600 mg in D5W 300 ml 600 MG/300 ML BAG IVPB SCH (10:36)
[2017-01-30] MEDS ORDERED: Naproxen 275 mg Tab PO SCH (11:15)
--- NOTE | 2017-01-30 12:55 | CP.PCM.PN ---
Subjective - Date & Time of Evaluation Date of Evaluation: 01/30/17 Time of Evaluation: 11:40 - Subjective Subjective: Comfortable, less pain in the right foot, no fevers overnight. Objective - Vital Signs/Intake and Output Vital Signs (last 24 hours): Temp Pulse Resp BP Pulse Ox 98 F 86 20 123/81 95 01/30/17 07:00 01/30/17 07:00 01/30/17 07:00 01/30/17 07:00 01/30/17 07:00 Intake and Output: 01/30/17 01/30/17 06:59 18:59 Intake Total 920 Balance 920 - Medications Medications: Current Medications Apixaban (Eliquis) 2.5 mg PO BID [facility] PRN Reason: Protocol Last Admin: 01/29/17 18:31 Dose: 2.5 mg Atorvastatin Calcium (Lipitor) 20 mg PO DIN [facility] Last Admin: 01/29/17 18:31 Dose: 20 mg Cholecalciferol (Vitamin D) 2,000 iu PO DAILY [facility] Last Admin: 01/29/17 09:46 Dose: 2,000 iu Famotidine (Pepcid) 20 mg PO DAILY [facility] PRN Reason: GI distress Linezolid (Zyvox 600mg/300ml D5w) 600 mg in 300 mls @ 200 mls/hr IVPB Q12 [facility] PRN Reason: Protocol Stop: 02/04/17 22:01 Last Admin: 01/29/17 21:18 Dose: 200 mls/hr Metoprolol Succinate (Toprol Xl) 100 mg PO DAILY [facility] Last Admin: 01/29/17 09:45 Dose: 100 mg Non-Formulary Medication (Docusate Calcium [Docusate Calcium]) 240 mg PO HS [facility] Last Admin: 01/29/17 21:40 Dose: Not Given Ferrous Fumarate/Iron Ps Cplx [Tandem Dual Action Capsule ] 1 cap PO DAILY [facility] Last Admin: 01/29/17 16:07 Dose: Not Given Ramipril (Altace) 5 mg PO DAILY [facility] Last Admin: 01/29/17 09:46 Dose: 5 mg Tamsulosin HCl (Flomax) 0.4 mg PO DAILY [facility] Last Admin: 01/29/17 09:46 Dose: 0.4 mg - Labs Labs: 01/29/17 06:30 01/29/17 06:30 PT 15.8 SECONDS (9.4-12.5) H 01/28/17 09:55 INR 1.43 (0.93-1.08) H 01/28/17 09:55 APTT 34.0 Seconds (25.1-36.5) 01/28/17 09:55 - Constitutional Appears: Non-toxic - Head Exam Head Exam: NORMAL INSPECTION - ENT Exam ENT Exam: Mucous Membranes Moist - Neck Exam Neck Exam: absent: Meningismus - Respiratory Exam Respiratory Exam: Decreased Breath Sounds - Cardiovascular Exam Cardiovascular Exam: +S1, +S2 - GI/Abdominal Exam GI & Abdominal Exam: Soft. absent: Tenderness - Extremities Exam Additional comments: right foot with dressings in place Assessment and Plan - Assessment and Plan (Free Text) Plan: Assessment Consider gouty arthritis / bursitis of the right Achilles' heel area, R/O skin and skin structure infection HTN CAD with chronic CHF S/P pacemaker placement history of TIA sciatica carotid stenosis S/P stent placement dyslipidemia gout Plan continue Zyvox; patient has received steroid injection into the affected area will monitor clinically while the patient is in the hospital
--- NOTE | 2017-01-31 01:08 | DS ---
CHIEF COMPLAINT: Foot and ankle pain. HISTORY OF PRESENT ILLNESS: Mr. Pelon Pedersen is a 76-years old male with history of anterior foot pain and with 2-day history of redness and swelling. The patient is complaining of difficulty with ambulation due to pain. Denies fever or chills, nausea or vomiting, diarrhea. No hematuria or hematochezia. No headache. No dizziness. We admitted the patient, did x-ray of the foot, shoulder x-ray, lumbar CT, lumbar spine x-rays, seen by Dr. Matthew Ogden, Infectious Disease and Dr. Wallace, Orthopedic, and Phlebotomist Lab Assistant, [place] gave steroid injection. The patient got better. I gave Naprosyn that helped the patient, looks like the patient has gouty arthritis, rule out infection. PAST MEDICAL HISTORY: Cardiomyopathy, carotid stenosis, history of [place], hypertension, congestive heart failure, pacemaker, fainting attack, dizziness, TIA, sciatica, history of fall and gouty arthritis, constipation, history of cardiac catheterization 3 times, and coronary stents. FAMILY HISTORY: Father and mother, noncontributory. SOCIAL HISTORY: Never smoked. No drugs. No ethanol. ALLERGIES: THE PATIENT IS NOT ALLERGIC TO ANY MEDICATIONS. HOME MEDICATIONS: Reviewed by me. REVIEW OF SYSTEMS: The patient is seen and examined at the bedside, looking comfortable. No nausea, vomiting or diarrhea. No hematuria or hematochezia. No swelling of upper extremities. No fever. No chills. PHYSICAL EXAMINATION: VITAL SIGNS: Temperature is 98, pulse is 86, respirations are 20, blood pressure is 123/81, and pulse oximetry is 95%. HEENT: Head is normocephalic and atraumatic. Eyes; PERRLA. Extraocular muscles are intact. Conjunctivae are clear. Nose patent. NECK: Supple. No carotid bruit, JVD or thyromegaly. CHEST: Bilaterally symmetrical. HEART: S1 and S2 positive. LUNGS: Clear to auscultation. ABDOMEN: Soft. Bowel sounds are present. No organomegaly. EXTREMITIES: No edema. No cyanosis. NEUROLOGIC: The patient is awake and alert. Moving all 4 extremities. No focal deficits. MEDICATIONS: Eliquis, Lipitor, vitamin D, Pepcid, Zyvox, he got in the hospital, Toprol given, docusate, ferrous sulfate, Altace and Flomax. LABORATORY DATA: White blood cell is 8.5, hemoglobin 11.2, hematocrit 34.8, and platelets 271. Chemistry: Sodium 140, potassium 4.4, BUN 22, creatinine 1.5, glucose 112. ASSESSMENT AND PLAN: Mr. Pelon Pedersen is 77-year-old male with anemia; hyperglycemia; has gouty arthritis, bursitis of the right Achilles tendon and heel area; rule out skin and skin structures, infection; history of pacemaker; history of transient ischemic attack; sciatica; carotid stenosis; status post stent placement; dyslipidemia; gouty arthritis. PLAN: Continue present treatment. This patient got injection 2 times on the affected area. Naproxen given. The patient was getting anxious to go home, cleared by the Podiatry, Orthopedic and Infectious Disease, sent home, follow up in my office. Karina Bonner MD
== END 2017-01-30 14:47 | disposition home or self-care (01) ==
LOC: ED 08:52 → ERH 11:42 → 5RSO 13:05
PROVIDERS: ADMIT Internal Medicine; ATTEND Internal Medicine
DX: L03.115 Cellulitis of right lower limb (principal); I50.9 Heart failure, unspecified; I65.29 Occlusion and stenosis of unspecified carotid artery; I71.4 Abdominal aortic aneurysm, without rupture; M10.9 Gout, unspecified; M19.012 Primary osteoarthritis, left shoulder; M51.36 Other intervertebral disc degeneration, lumbar region; M54.30 Sciatica, unspecified side; M77.30 Calcaneal spur, unspecified foot; I25.2 Old myocardial infarction; I42.9 Cardiomyopathy, unspecified; D50.9 Iron deficiency anemia, unspecified; E05.90 Thyrotoxicosis, unspecified without thyrotoxic crisis or storm; E78.5 Hyperlipidemia, unspecified; F51.02 Adjustment insomnia; I11.0 Hypertensive heart disease with heart failure; I25.10 Atherosclerotic heart disease of native coronary artery without angina pectoris; Z79.01 Long term (current) use of anticoagulants; Z79.82 Long term (current) use of aspirin; Z79.899 Other long term (current) drug therapy; Z86.73 Personal history of transient ischemic attack (TIA), and cerebral infarction without residual deficits; Z91.81 History of falling; Z95.0 Presence of cardiac pacemaker; Z95.5 Presence of coronary angioplasty implant and graft; K59.00 Constipation, unspecified; M71.9 Bursopathy, unspecified; M75.20 Bicipital tendinitis, unspecified shoulder; M75.102 Unspecified rotator cuff tear or rupture of left shoulder, not specified as traumatic
CPT/HCPCS: 36415; 72100; 72131; 73030; 73630; 80048; 80053; 80061; 82746; 83036; 83540; 83550; 84443; 84550; 85025; 85027; 85610; 85651; 85730; 86140; 87040; 96365; 96366; 96367; 96372; 96375; 96376; 97110; 97116; 97161; 99285; G0378; G8978; G8979; J1200; J2020; J2543